=== PATIENT | female | born 1940 | race Hispanic/Latino ===

== ENCOUNTER 2018-10-15 18:24 | Emergency (ER) | payer MEDICARE ==
[~2018-10-15 18:24] MED LIST: ASPI-555 PO; LEVO50TA11 PO; METO-391 PO; SERT100T12 PO
== END 2018-10-15 20:04 | disposition home or self-care (01) ==
LOC: EDH 18:24
DX: N76.6 Ulceration of vulva (principal); I10 Essential (primary) hypertension; F41.9 Anxiety disorder, unspecified; Z90.710 Acquired absence of both cervix and uterus; Z98.890 Other specified postprocedural states
CPT/HCPCS: 99282

== ENCOUNTER 2021-05-20 02:28 | Emergency (ER) | payer OTHER, MEDICARE ==
[~2021-05-20] VITALS: Ht 152.4 cm; Wt 73.9 kg
[~2021-05-20 02:28] MED LIST changes: -ASPI-555 PO; +ASPI-556 PO; +SERT-440 PO; -SERT100T12 PO
[2021-05-20] MEDS ORDERED: MORPHINE 4 MG SYG ONE (02:54)
[2021-05-20] MEDS ORDERED: ONDANSETRON 4MG INJ ONE (02:54)
[2021-05-20] MEDS ORDERED: ONDANSETRON 4MG INJ IVP ONE (03:00)
[2021-05-20] MEDS ORDERED: MORPHINE 4 MG SYG IV ONE (03:00)
[2021-05-20 03:28] LABS: BASOPHILS % (AUTO) 0.5 % (0.0-5.0); EOSINOPHILS % (AUTO) 2.5 % (0.0-8.0); HEMATOCRIT 38.5 % (36-48); LYMPHOCYTES % (AUTO) 34.1 % (21.0-51.0); MEAN CORPUSCULAR HGB CONC 33.2 g/dL (32.0-36.0); MEAN CORPUSCULAR VOLUME 84.2 fL (79-99); MONOCYTES % (AUTO) 8.3 % (3.0-13.0); NEUTROPHILS % (AUTO) 54.4 % (40.0-77.0); PLATELET COUNT (AUTO) 217 K/uL (130-400); RED BLOOD CELL COUNT(AUTO) 4.57 MIL/uL (4.00-5.50); RED CELL DISTRIBUTION WIDTH 12.7 % (11.0-15.5); WHITE BLOOD COUNT (AUTO) 5.5 K/uL (4.8-10.8)
[2021-05-20 03:50] LABS: ALBUMIN 3.9 g/dL (3.5-5.0); BILIRUBIN,TOTAL 0.7 mg/dL (0.2-1.0); POTASSIUM 3.4 mmol/L (3.5-5.1); TOTAL PROTEIN, SERUM 7.9 g/dL (6.0-8.3)
[2021-05-20] MEDS ORDERED: LIDOCAINE HCL 2% JELLY 5 ML ONE (03:52)
[2021-05-20] MEDS ORDERED: AMOX-426 PO (04:57)
[2021-05-20] MEDS ORDERED: CEFTRIAXONE 1G VIAL IVP ONE (05:00)
[2021-05-20] MEDS ORDERED: LIDO5JEL9 MM (05:01)
[2021-05-20 05:18] VITALS: BP 145/57
== END 2021-05-20 05:18 | disposition home or self-care (01) ==
LOC: EDH 02:28
DX: N76.6 Ulceration of vulva (principal); F41.9 Anxiety disorder, unspecified; E03.9 Hypothyroidism, unspecified; F32.A Depression, unspecified; I10 Essential (primary) hypertension; Z79.82 Long term (current) use of aspirin; Z79.899 Other long term (current) drug therapy
CPT/HCPCS: 36415; 80053; 85025; 96374; 96375 ×2; 99284; J0696; J2270; J2405

== ENCOUNTER 2023-03-03 07:30 | Emergency (ER) | payer OTHER, MEDICARE ==
[~2023-03-03] VITALS: Ht 152.4 cm; Wt 72.1 kg
[2023-03-03 08:21] LABS: HEMATOCRIT 36.2 % (36-48); MEAN CORPUSCULAR HEMOGLOBIN 27.4 pg (27.0-33.0); MEAN CORPUSCULAR HGB CONC 32.6 g/dL (32.0-36.0); MEAN CORPUSCULAR VOLUME 84.2 fL (79-99); RED BLOOD CELL COUNT(AUTO) 4.3 MIL/uL (4.00-5.50); RED CELL DISTRIBUTION WIDTH 13.4 % (11.0-15.5)
[2023-03-03 08:27] LABS: CREATININE 0.8 mg/dL (0.5-1.5); POTASSIUM 3.4 mmol/L (3.5-5.1)
[2023-03-03 08:30] LABS: BILIRUBIN,URINE NEGATIVE (NEGATIVE); COLOR,URINE YELLOW (YELLOW); GLUCOSE, URINE (UA) NEGATIVE (NEGATIVE); KETONES,URINE NEGATIVE (NEGATIVE); LEUKOCYTE ESTERASE ,URINE 500 Leu/uL (NEGATIVE); NITRATE,URINE NEGATIVE (NEGATIVE); OCCULT BLOOD,URINE NEGATIVE (NEGATIVE); PROTEIN,URINE 20 mg/dL (NEGATIVE); UROBILINOGEN,URINE 0.2 mg/dL (0.2-1.0)
[2023-03-03 08:32] LABS: ALBUMIN 3.6 g/dL (3.5-5.0); BILIRUBIN,TOTAL 0.6 mg/dL (0.2-1.0); TOTAL PROTEIN, SERUM 7.2 g/dL (6.0-8.3)
[2023-03-03 08:34] LABS: ADD UA MICROSCOPIC YES; APPEARANCE,URINE HAZY (CLEAR)
[2023-03-03 08:38] LABS: BACTERIA,URINE RARE /HPF (None Seen); MUCUS,URINE FEW LPF (None Seen); RBC,URINE 0-1 /HPF (0-1); SQUAMOUS EPITHELIAL CELL,UR FEW /HPF (0-2); WBC,URINE TNTC /HPF (0-1)
[2023-03-03] MEDS ORDERED: ONDANSETRON 4MG INJ IVP ONE (09:00)
[2023-03-03] MEDS ORDERED: LACTATED RINGERS 1000ML 1,000 ML IV ONE (09:00)
[2023-03-03] MEDS ORDERED: FAMOTIDINE 20MG VIAL IV ONE (09:00)
[2023-03-03] MEDS ORDERED: CEPHALEXIN 500 MG CAPSULE PO ONE (10:30)
[2023-03-03 11:43] VITALS: BP 176/62; PULSE 55; RESP 20; O2SAT 99
[2023-03-03] MEDS ORDERED: ONDA4TAB10 PO (11:54)
[2023-03-03] MEDS ORDERED: CEPH500B PO (11:54)
== END 2023-03-03 12:15 | disposition home or self-care (01) ==
LOC: EDH 07:30
DX: N39.0 Urinary tract infection, site not specified (principal); A08.4 Viral intestinal infection, unspecified; I10 Essential (primary) hypertension; E87.6 Hypokalemia; Z90.49 Acquired absence of other specified parts of digestive tract; Z90.710 Acquired absence of both cervix and uterus; Z98.890 Other specified postprocedural states
CPT/HCPCS: 99284; 96374; 96361; 96375; 80053; 83690; 85027; 87088; 83605; 81001; 36415; J7120; J3490; J2405

== ENCOUNTER → 2025-02-04 | Emergency (ER) | payer OTHER, MEDICAID ==
[~2025-02-04] VITALS: Ht 152.4 cm; Wt 54.4 kg
[~2025-02-04] MED LIST changes: +AMOX-426 PO; -ASPI-556 PO; +DONE-53 PO; +FOLI0.8C PO; -LEVO50TA11 PO; +LISI20TA24 PO; -METO-391 PO; -SERT-440 PO; +SUCR1TAB2 PO
[2025-02-04 11:49] VITALS: TEMP 98.1
--- NOTE | 2025-02-04 12:04 | ERN ---
ED Note History of Present Illness Stated Complaint: FALL Chief Complaint: Mechanical Fall Time Seen by MD: 11:40 Time Seen by Midlevel: 11:41 Dictation: 84-year-old female presents to the emergency department accompanied by her daughter per EMS for evaluation due to reported having sustained a fall 2 days ago and complaining of chest pain day. The daughter states that she does have a history of dementia and because of that she has a very poor historian. As per the daughter, she has not know if the chest pain is associated to the fall although his chest pain that is heart related. The daughter states that she had 1 episode of vomiting yesterday but not today. Currently, the daughter states that she is trying acting her normal self. Allergies: Coded Allergies: No Known Drug Allergies (Unverified Allergy, Unknown, 12/04/22) Emergency Care RADIO DISC JOCKEY: None Home Meds Active Scripts Sucralfate (Sucralfate) 1 Gram Tablet, 1 TAB PO TID for 30 Days, #90 TAB 0 Refills Prov:GWEN MORENO MD 12/11/24 Amoxicillin/Potassium Clav (Augmentin 500-125 Tablet) 500 Mg-125 Mg Tablet, 1 TAB PO BID for 7 Days, #14 TAB 0 Refills Prov:GWEN MORENO MD 12/11/24 Reported Medications Folic Acid (Folic Acid) 0.8 Mg Capsule, 1 CAP PO DAILY for 30 Days, #30 CAP 0 Refills 12/09/24 Donepezil HCl (Donepezil HCl) 10 Mg Tab.rapdis, 10 MG PO AM, TAB 12/09/24 Lisinopril (Lisinopril) 20 Mg Tablet, 1 TAB PO DAILY 03/15/24 Past Medical History Past Medical History: Dementia, Hypertension Surgical History: Unknown Surgical History Other: RT KNEE, UMBILIAL HERNIA Family History: HTN Social History: Negative, Lives with family History: Not Applicable RN Note Reviewed/Agreed w/PFSH: Yes Review of System Dictation Review of systems unable to be obtained due to patient history of dementia. Initial Vital Sign VS Vital Signs Date Time Temp Pulse Resp B/P (MAP) Pulse Ox O2 Delivery O2 Flow Rate FiO2 02/04/25 11:39 98.1 58 20 136/72 99 0 02/04/25 11:49 Room Air* 21 Physical Exam Dictation General: awake, alert, NAD Head/Face: Normocephalic, atraumatic Eyes: PERRL, EOMI ENT: Oral mucosa moist Neck: Trachea midline, supple Cardiovascular: RRR, no edema Respiratory: Symmetrical, non-labored Abdomen: Soft, non-tender, non-distended, no guarding. Skin: Warm, dry, good turgor, no rash MS/Extremity: Pulses equal, no cyanosis, neurovascular intact, FROM Neuro: Awake, alert, oriented to person Results (Laboratory/Radiology) Laboratory/Radiology Laboratory Tests Test 02/04/25 12:11 02/04/25 13:59 White Blood Count 7.5 K/uL (4.8-10.8) Red Blood Count 3.82 MIL/uL (4.00-5.50) L Hemoglobin 10.7 g/dL (12.0-16.0) L Hematocrit 32.4 % (36-48) L Mean Corpuscular Volume 84.8 fL (79-99) Mean Corpuscular Hemoglobin 28.0 pg (27.0-33.0) Mean Corpuscular Hemoglobin Concent 33.0 g/dL (32.0-36.0) Red Cell Distribution Width 13.1 % (11.0-15.5) Platelet Count 235 K/uL (130-400) Mean Platelet Volume 11.3 fL (7.5-10.5) H Immature Granulocyte % (Auto) 0.4 % (0-1) Neutrophils (%) (Auto) 76.0 % (40.0-77.0) Lymphocytes (%) (Auto) 16.0 % (21.0-51.0) L Monocytes (%) (Auto) 7.2 % (3.0-13.0) Eosinophils (%) (Auto) 0.1 % (0.0-8.0) Basophils (%) (Auto) 0.3 % (0.0-5.0) Neutrophils # (Auto) 5.7 K/uL (1.8-7.7) Lymphocytes # (Auto) 1.2 K/uL (1.0-4.8) Monocytes # (Auto) 0.5 K/uL (0.1-1.0) Eosinophils # (Auto) 0.01 K/uL (0.00-0.70) Basophils # (Auto) 0.02 K/uL (0.00-0.20) Absolute Immature Granulocyte (auto 0.03 K/uL (0-1) Nucleated Red Blood Cells 0.0 % (0.0-0.19) Sodium Level 139 mmol/L (136-145) Potassium Level 3.0 mmol/L (3.5-5.1) *L Chloride Level 100 mmol/L (101-111) L Carbon Dioxide Level 28 mmol/L (21-32) Blood Urea Nitrogen 21 mg/dL (7-18) H Creatinine 0.7 mg/dL (0.5-1.0) Glomerular Filtration Rate Calc 86 mL/min (>90) Random Glucose 85 mg/dL (70-105) Total Calcium 9.1 mg/dL (8.5-10.1) Total Bilirubin 0.9 mg/dL (0.2-1.0) Aspartate Amino Transf (AST/SGOT) 13 U/L (10-37) Alanine Aminotransferase (ALT/SGPT) 13 U/L (12-78) Alkaline Phosphatase 114 U/L (50-136) Total Creatine Kinase 20 U/L (21-232) #L Troponin I High Sensitivity 13 ng/L (4-50) Total Protein 6.6 g/dL (6.0-8.3) Albumin 2.8 g/dL (3.5-5.0) L Urine Color YELLOW (YELLOW) Urine Appearance HAZY (CLEAR) Urine pH 6.0 (5.0-8.0) Urine Specific [place] 1.022 (1.001-1.031) Urine Protein 30 mg/dL (NEGATIVE) H Urine Glucose (UA) 30 mg/dL (NEGATIVE) H Urine Ketones 20 mg/dL (NEGATIVE) H Urine Occult Blood NEGATIVE (NEGATIVE) Urine Nitrate NEGATIVE (NEGATIVE) Urine Bilirubin NEGATIVE mg/dL (NEGATIVE) Urine Urobilinogen 2.0 mg/dL (0.2-1.0) H Urine Leukocyte Esterase NEGATIVE Jonathan/uL Urine RBC 0-1 /HPF (0-1) Urine WBC 2-5 /HPF (0-1) H Urine Squamous Epithelial Cells MOD /HPF (0-2) Urine Bacteria FEW /HPF (None Seen) Labs Reviewed?: Yes EKG Comment: EKG done 01/25/2025 at 12:02 p.m. Ventricular rate of 56 beats per minute WV 134 MS QRS 76 MS QT [address] Scan Comment: CT of the chest without contrast with no pertinent findings as per radiologist's read. ED Course ED Course Orders Procedure Category Date Status Time Troponin I High LAB 02/04/25 Complete Sensitivity 11:55 Cbc With Differential LAB 02/04/25 Complete 11:55 Comprehensive LAB 02/04/25 Complete Metabolic Panel 11:55 Creatine Kinase, Total LAB 02/04/25 Complete 11:55 12 Lead Ekg Tracing- EKG 02/04/25 Complete Technical 11:55 Ct Chest W/O Contrast CT 02/04/25 Resulted 11:55 Acetaminophen 325 Tab PHA 02/04/25 Complete (Tylenol 325mg Tab 13:00 Potassium Bicarb/Cit PHA 02/04/25 Complete Ac 25meq (K-Lyte Ta 13:00 Urinalysis Profile LAB 02/04/25 Complete 14:01 Current Medications Medications (Trade) Dose Ordered Sig/Sharona Route PRN Reason Start Time Stop Time Status Last Admin Dose Admin Acetaminophen (TYLenol 325MG TAB) 650 mg ONCE ONCE PO 02/04/25 13:00 02/04/25 13:01 DC 02/04/25 12:55 Potassium Bicarbonate (K-Lyte Tablet Eff 25 Meq Tablet.eff) 25 meq ONCE ONCE PO 02/04/25 13:00 02/04/25 13:01 DC 02/04/25 12:55 Vital Signs Date Time Temp Pulse Resp B/P (MAP) Pulse Ox O2 Delivery O2 Flow Rate FiO2 02/04/25 14:21 78 20 133/50 99 Room Air* 0 02/04/25 13:01 53 18 143/59 97 Room Air* 0 02/04/25 11:49 98.1 57 18 144/75 98 Room Air* 0 02/04/25 11:39 98.1 58 20 136/72 99 0 Medical Decision Making MDM MDM: Differential diagnosis: Chest wall strain, rib fracture, pneumothorax. Rationale: Tests considered and ordered secondary to shared decision making include: Previous outside records reviewed: Old ER visits. Risk of complication and/or morbidity or mortality of patient management: None Medications-Per medication reconciliation Need for hospitalization: Patient does not meet criteria for hospitalization. Need for emergency major/minor surgery: No There are no social concerns with this patient. Prescription drug management Prescriptions will include symptomatic care Patient's prior external medical records from other ER visits were reviewed by me as indicated. Prior testing and results from previous visits were reviewed. Prior tests were taken into account with medical decision making and resource utilization, independent historian/historians were used to obtain complete medical history. I independently interpreted the test that were performed, results were reviewed by me and considered findings on radiology if ordered. Medical management and examination interpretation discussions were had by me with other qualified healthcare professionals as indicated for the patient's care. DX & DISP Disposition: Discharge Departure Impression: Primary Impression: Strain of chest wall Additional Impression: Acute hypokalemia Condition: Stable Referrals: IRA PERDUE (PCP) Time of Disposition: 14:32 SINDY LINDA Feb 04, 2025 12:04
[2025-02-04 12:17] LABS: IMMATURE GRANULOCYTE ABSOLUTE 0.03 K/uL (0-1); NUCLEATED RED BLOOD CELLS 0.0 % (0.0-0.19); PLATELET COUNT (AUTO) 235 K/uL (130-400); RED BLOOD CELL COUNT(AUTO) 3.82 MIL/uL (4.00-5.50); RED CELL DISTRIBUTION WIDTH 13.1 % (11.0-15.5); WHITE BLOOD COUNT (AUTO) 7.5 K/uL (4.8-10.8)
[2025-02-04 12:35] LABS: ASPARTATE AMINOTRANSFERASE 13.0 U/L (10-37); CREATINE KINASE, TOTAL 20.0 U/L (21-232); CREATININE 0.7 mg/dL (0.5-1.0); GLOMERULAR FILTR. RATE CALC 86.0 mL/min (>90); GLUCOSE,RANDOM 85.0 mg/dL (70-105); SODIUM SERUM 139.0 mmol/L (136-145); TOTAL PROTEIN, SERUM 6.6 g/dL (6.0-8.3); UREA NITROGEN, BLOOD 21.0 mg/dL (7-18)
--- NOTE | 2025-02-04 13:59 | HMCIMG ---
EXAM: CT Chest Without IV Contrast. CLINICAL HISTORY: Fall, pain. TECHNIQUE: Axial computed tomography images of the chest were obtained without intravenous contrast. COMPARISON: None provided. FINDINGS: LUNGS: Focal subsegmental atelectasis is seen in the lateral basal segment of the right lung's lower lobe and middle lobe. The rest of the lungs appear essentially clear. PLEURAL SPACES: No evidence of pneumothorax. No pleural effusion. HEART: No cardiomegaly. No significant pericardial effusion. Atherocalcific changes are noted in the aorta. Severe coronary artery calcifications are seen. LYMPH NODES: No lymphadenopathy is evident. UPPER ABDOMEN: The upper abdominal solid organs are unremarkable. BONES: No acute osseous abnormality. Degenerative changes in the spine. IMPRESSION: 1. No acute intrathoracic findings. /[place]
[2025-02-04 14:08] LABS: GLUCOSE, URINE (UA) 30 mg/dL (NEGATIVE); LEUKOCYTE ESTERASE ,URINE NEGATIVE Leu/uL (NEGATIVE); NITRATE,URINE NEGATIVE (NEGATIVE); OCCULT BLOOD,URINE NEGATIVE (NEGATIVE)
[2025-02-04 14:09] LABS: ADD UA MICROSCOPIC YES; APPEARANCE,URINE HAZY (CLEAR)
[2025-02-04 14:13] LABS: SQUAMOUS EPITHELIAL CELL,UR MOD /HPF (0-2)
--- NOTE | 2025-02-04 14:18 | EKG ---
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
[2025-02-04 14:21] VITALS: BP 133/50; PULSE 78; RESP 20; O2SAT 99
== END ==
LOC: EDH 11:39
DX: S29.011A Strain of muscle and tendon of front wall of thorax, initial encounter (principal); E87.6 Hypokalemia; F03.90 Unspecified dementia, unspecified severity, without behavioral disturbance, psychotic disturbance, mood disturbance, and anxiety; I10 Essential (primary) hypertension; Z79.899 Other long term (current) drug therapy; W18.39XA Other fall on same level, initial encounter; Y93.89 Activity, other specified; Y92.89 Other specified places as the place of occurrence of the external cause; Y99.8 Other external cause status
CPT/HCPCS: 36415; 71250; 80053; 81001; 82550; 84484; 85025; 93005; 99284

== ENCOUNTER 2025-04-04 16:43 | Inpatient (IN) | payer OTHER, MEDICAID ==
[~2025-04-04] VITALS: Ht 165.1 cm; Wt 49.0 kg
[~2025-04-04 16:43] MED LIST changes: -AMOX-426 PO; +MEMA10TA21 PO; +OMEP40CA21 PO
[2025-04-04] MEDS ORDERED: PANT40TA54 PO (17:15)
[2025-04-04] MEDS ORDERED: CLON0.5T23 PO (17:15)
[2025-04-04] MEDS ORDERED: DOXE50CA4 PO (17:15)
[2025-04-04] MEDS ORDERED: ONDA22I PEG (17:15)
[2025-04-04] MEDS ORDERED: ACET-2123 PO (17:15)
[2025-04-04] MEDS ORDERED: MEMA10TA21 PO (17:15)
[2025-04-04] MEDS ORDERED: FERS325 PO (17:15)
[2025-04-04] MEDS ORDERED: LISI20TA24 PO (17:15)
--- NOTE | 2025-04-04 17:31 | ERN ---
General Chief Complaint: Head, Face, Neck Trauma Stated Complaint: HEAD INJURY Time Seen by MD: 16:47 Time Seen by Midlevel: 16:47 Source: patient History of Present Illness Initial Comments 85 y/o male presents to the ED by EMS from nursing facility due to a head injury and requiring a PEG tube replacement. Daughter reports patient has been a little more confused from usual dementia baseline, and has also been complaining of lower abdominal pain. Daughter denies any vomiting, fevers, states patient has chronic diarrhea. Denies further associated symptoms. PMHx dementia, HTN Allergies: Coded Allergies: No Known Drug Allergies (Unverified Allergy, Unknown, 12/04/22) Home Meds Active Scripts Sucralfate (Sucralfate) 1 Gram Tablet, 1 TAB PO TID for 30 Days, #90 TAB 0 Refills Prov:GWEN MORENO MD 12/11/24 Reported Medications Ondansetron HCl (Zofran) 4 Mg/2 Ml Inj, 4 MG PEG QIDP PRN for NAUSEA, ML 04/04/25 Acetaminophen (Acetaminophen Extra Strength) 500 Mg Tablet, 1000 MG PO HSPRN PRN for PAIN, TAB 04/04/25 Doxepin HCl (Doxepin HCl) 50 Mg Capsule, 1 CAP PO HS for 30 Days, #30 CAP 0 Refills 04/04/25 Pantoprazole Sodium (Pantoprazole Sodium) 40 Mg Tablet.dr, 1 TAB PO DAILY for 30 Days, #30 TAB 0 Refills 04/04/25 Clonazepam (Clonazepam) 0.5 Mg Tab.rapdis, 1 TAB PO BID for 30 Days, #60 TAB 0 Refills 04/04/25 Ferrous Sulfate (Ferrous Sulfate) 325 Mg (65 Mg Iron) Ectab, 1 TAB PO BID for 30 Days, #60 TAB 0 Refills 04/04/25 Lisinopril (Lisinopril) 20 Mg Tablet, 1 TAB PO DAILY for 30 Days, #30 TAB 0 Refills 04/04/25 Memantine HCl (Memantine HCl) 10 Mg Tablet, 1 TAB PO DAILY for 30 Days, #30 TAB 0 Refills 04/04/25 Omeprazole (Omeprazole) 40 Mg Capsule.dr, 1 CAP PO DAILY 03/03/25 Memantine HCl (Memantine HCl) 10 Mg Tablet, 1 TAB PO DAILY 03/03/25 Folic Acid (Folic Acid) 0.8 Mg Capsule, 1 CAP PO DAILY for 30 Days, #30 CAP 0 Refills 12/09/24 Donepezil HCl (Donepezil HCl) 10 Mg Tab.rapdis, 10 MG PO AM, TAB 12/09/24 Lisinopril (Lisinopril) 20 Mg Tablet, 1 TAB PO DAILY 03/15/24 Past Medical History Past Medical History: Anxiety, Constipation, Dementia, Hypertension, Other Medical History Other: GASTRITIS, UNSTEADY, HYPOKALEMIA, PNEUMONIA Past Surgical History: Unknown Surgical History Other: RT KNEE, UMBILIAL HERNIA Family History Family History: HTN Social History Social History: Negative, Lives with family Female( History) History: Not Applicable ROS Dictation Constitutional: Negative for fever,chills, and weight loss Eyes: Negative for injury, pain,redness, and discharge ENT: Negative for injury,pain or swelling Cardiovascular: Negative for chest pain, palpitations, and edema Respiratory: Negative for shortness of breath, cough, and wheezing, Abdomen/GI: Positive abdominal pain Negative for nausea, vomiting, diarrhea, and constipation Back: Negative for injury and pain : Negative for painful urination, bleeding or discharge MS/Extremity: Negative for injury and deformity Skin: Negative for rash, and discoloration Neuro: Positive headache Negative for weakness, numbness, tingling, and seizure Psych: Negative for suicide ideation, homicidal ideation, and hallucinations Physical Exam Physical Exam Dictation General: awake, alert, no acute distress Head/Face: Normocephalic, atraumatic Eyes: PERRL, EOMI, normal conjunctiva ENT: oral cavity clear, oral mucosa moist Neck: Supple, normal range of motion Cardiovascular: RRR, normal S1/S2 Respiratory: CTAB, no respiratory distress Abdomen: Soft, discomfort on palpation of the lower abdomen, non-distended, no guarding or rebound. Peg tube incision epigastric area Skin: Warm, dry, normal turgor, no rash. MS/Extremity: Pulses equal, no cyanosis, neurovascular intact, FROM Neuro: COAx4, GCS 15, confused consistent with a dementia Psych: Normal behavior, mood, and affect normal Results Laboratory and Microbiology Lab and Micro Result Laboratory Tests Test 04/04/25 17:35 04/04/25 20:05 White Blood Count 10.1 K/uL (4.8-10.8) Red Blood Count 3.18 MIL/uL (4.00-5.50) L Hemoglobin 8.7 g/dL (12.0-16.0) L Hematocrit 28.3 % (36-48) L Mean Corpuscular Volume 89.0 fL (79-99) Mean Corpuscular Hemoglobin 27.4 pg (27.0-33.0) Mean Corpuscular Hemoglobin Concent 30.7 g/dL (32.0-36.0) L Red Cell Distribution Width 14.6 % (11.0-15.5) Platelet Count 499 K/uL (130-400) H Mean Platelet Volume 10.3 fL (7.5-10.5) Immature Granulocyte % (Auto) 1.6 % (0-1) H Neutrophils (%) (Auto) 71.4 % (40.0-77.0) Lymphocytes (%) (Auto) 15.3 % (21.0-51.0) L Monocytes (%) (Auto) 9.9 % (3.0-13.0) Eosinophils (%) (Auto) 1.3 % (0.0-8.0) Basophils (%) (Auto) 0.5 % (0.0-5.0) Neutrophils # (Auto) 7.2 K/uL (1.8-7.7) Lymphocytes # (Auto) 1.6 K/uL (1.0-4.8) Monocytes # (Auto) 1.0 K/uL (0.1-1.0) Eosinophils # (Auto) 0.13 K/uL (0.00-0.70) Basophils # (Auto) 0.05 K/uL (0.00-0.20) Absolute Immature Granulocyte (auto 0.16 K/uL (0-1) Nucleated Red Blood Cells 0.0 % (0.0-0.19) Red Blood Cell Morphology See comments Sodium Level 138 mmol/L (136-145) Potassium Level 4.4 mmol/L (3.5-5.1) Chloride Level 99 mmol/L (101-111) L Carbon Dioxide Level 32 mmol/L (21-32) Blood Urea Nitrogen 25 mg/dL (7-18) H Creatinine 0.6 mg/dL (0.5-1.0) Glomerular Filtration Rate Calc 89 mL/min (>90) Random Glucose 103 mg/dL (70-105) Total Calcium 9.2 mg/dL (8.5-10.1) Urine Color LIGHT-YELLOW (YELLOW) Urine Appearance CLEAR (CLEAR) Urine pH 8.0 (5.0-8.0) Urine Specific [place] 1.010 (1.001-1.031) Urine Protein NEGATIVE mg/dL (NEGATIVE) Urine Glucose (UA) NEGATIVE mg/dL (NEGATIVE) Urine Ketones NEGATIVE mg/dL (NEGATIVE) Urine Occult Blood NEGATIVE (NEGATIVE) Urine Nitrate NEGATIVE (NEGATIVE) Urine Bilirubin NEGATIVE mg/dL (NEGATIVE) Urine Urobilinogen 0.2 mg/dL (0.2-1.0) Urine Leukocyte Esterase NEGATIVE Jonathan/uL Urine RBC 0-1 /HPF (0-1) Urine WBC 2-5 /HPF (0-1) H Urine Squamous Epithelial Cells RARE /HPF (0-2) Urine Bacteria None /HPF (None Seen) Labs Reviewed?: Yes EKG/XRAY/US/CT/MRI CT Scan Comment REASON: ABdominal discomfort, R/O fistula ORDERING PHYSICIAN: HERMINIO DASILVA PAC PROCEDURE: ABD PEL WO - CT ABDOMEN/PELVIS W/O CONTRAST EXAM: CT Abdomen and Pelvis Without IV contrast CLINICAL HISTORY: Abdominal discomfort, to rule out a fistula. TECHNIQUE: Axial computed tomography images of the abdomen and pelvis without intravenous contrast. CONTRAST: No IV contrast. COMPARISON: CT dated March 03, 2025. FINDINGS: LUNG BASES: Bibasilar atelectasis with parenchymal scarring. Coronary artery calcifications. Aortic valve calcifications. Otherwise, the lung bases appear clear. No pleural effusions are seen. LIVER: Unremarkable. GALLBLADDER AND BILE DUCTS: The gallbladder is surgically removed. PANCREAS: Unremarkable. SPLEEN: Unremarkable. ADRENAL GLANDS: Unremarkable. KIDNEYS, URETERS, AND BLADDER: Tiny concretion in the mid calyx of the right kidney and in the mid and lower calyx of the left kidney. A few cysts in the left kidney, the largest measuring approximately 12 x 10 mm in the upper pole of the left kidney. There is no hydronephrosis or hydroureter. STOMACH AND BOWEL: There is a gastrostomy tube in place. The stomach is distended. No wall thickening. Colonic diverticulosis. The cecum is medially placed. There is an asymmetric circumferential wall thickening of the sigmoid colon with mild pericolonic fat stranding. 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 The terminal ileum is adherent to the sigmoid colon. PERITONEUM: Approximately 5.7 x 4.6 cm defect in the anterior abdominal wall involving the supra and infraumbilical region, with herniation of the omental fat, suggestive of incisional hernia is likely. No free fluid. No free air. LYMPH NODES: A few enlarged, rounded lymph nodes in the periumbilical region and in the soft tissue plane of the anterior abdominal wall adjacent to the incisional hernia, the largest measuring approximately 1.1 x 1 cm. REPRODUCTIVE: Unremarkable as visualized. VASCULATURE: Atherosclerotic changes in the visualized arterial vasculature in the form of fibrocalcified plaque. No evidence of abdominal aortic aneurysm. BONES: Spinal degenerative changes. Anterior offset of L4 vertebra over L5, due to facet joint arthropathy. No aggressive appearing osseous lesion. No acute osseous pathology is evident. IMPRESSION: 1. Colonic diverticulosis. Asymmetric circumferential wall thickening of the sigmoid colon with mild pericolonic fat stranding, likely diverticulitis. There is a communication between the sigmoid colon and the medially placed cecum with loss of fat plane, suggestive of colocolic fistula. No interval changes. 2. Incisional hernia in the anterior abdominal wall with omental fat herniation, no interval changes. 3. A few enlarged periumbilical and anterior abdominal wall lymph nodes, no interval changes. /[place] DICTATED BY: LISA BECKHAM Jr., MD DATE: 04/04/252127 [facility] MDM: Differential diagnosis: Closed head injury, dehydration, UTI, peg tube replacement Rationale: 85 y/o male presents to the ED by EMS from nursing facility due to a head injury and requiring a PEG tube replacement. Daughter reports patient has been a little more confused from usual dementia baseline, and has also been complaining of lower abdominal pain. Daughter denies any vomiting, fevers, states patient has chronic diarrhea. Denies further associated symptoms. PMHx dementia, HTN Per physical examination the patient is confused, lower abdominal discomfort on palpation. PEG tube replacement was performed in the ED and confirmed with the abdominal x-ray to be in placed. Head CT for closed head injury shows no intracranial abnormalities. Due to patient's abdominal pain labs and UA obt ained. When nurses were attempting to obtain urine with a in and out cath, they mentioned fecal material was obtained on [address] abdomen and pelvis was then obtained indicating a communication between the sigmoid colon in the cecum likely colocolic fistula, terminal ileum is educated into the sigmoid colon. Anterior abdominal wall infraumbilical region hernia. Enlarged periumbilical and anterior abdominal wall lymph nodes noted. Labs indicate anemia with hemoglobin of 8.7 otherwise nonspecific and UA negative for urinary tract infection. Case was discussed with general surgeon Dr. Rosario who recommended initiating the patient on broad-spectrum antibiotics Zosyn, IV fluids at 100 cc/hour of NS, and maintaining her NPO. Case discussed with hospitalist who accepted admission. Previous outside records reviewed: Old ER visits. Risk of complication and/or morbidity or mortality of patient management: None Medications-Per medication reconciliation Need for hospitalization: Patient does meet criteria for hospitalization. Need for emergency major/minor surgery: No There are no social concerns with this patient. Prescription drug management Prescriptions will include symptomatic care Patient's prior external medical records from other ER visits were reviewed by me as indicated. Prior testing and results from previous visits were reviewed. Prior tests were taken into account with medical decision making and resource utilization, independent historian/historians were used to obtain complete medical history. I independently interpreted the test that were performed, results were reviewed by me and considered findings on radiology if ordered. Medical management and examination interpretation discussions were had by me with other qualified healthcare professionals as indicated for the patient's care. ED Course Orders Procedure Category Date Status Time Ct Head/Brain W/O CT 04/04/25 Resulted Contrast 16:52 Cbc With Differential LAB 04/04/25 Complete 17:15 Basic Metabolic Panel LAB 04/04/25 Complete 17:15 Urinalysis LAB 04/04/25 Complete W/Microscopic 17:15 Peg Replacement Set CPOE 04/04/25 Transmitted Up (Er) 17:25 Abd 1vw RAD 04/04/25 Resulted 17:25 Straight Cath If No CPOE 04/04/25 Transmitted Void X6hrs 18:13 Diatr PHA 04/04/25 Complete Meglu/Diatrizoate 18:19 Ct Abdomen/Pelvis W/O CT 04/04/25 Resulted Contrast 18:26 Zosyn 3.375gm+Ns 50ml PHA 04/04/25 Complete (Zosyn 3.375gm+Ns 21:00 0.9%Nacl 1000ml (Ns PHA 04/04/25 In Process 1000ml) 21:00 Current Medications Medications (Trade) Dose Ordered Sig/Sharona Route PRN Reason Start Time Stop Time Status Last Admin Dose Admin Diatrizoate Meglum/ Diatrizoate Sod (Gastrografin 66-10 Solution) 30 ml STK-MED ONCE .ROUTE 04/04/25 18:19 04/04/25 18:19 DC Piperacillin Sod/ Tazobactam Sod (Zosyn 3.375gm+NS 50ml) 3.375 gm ONCE ONCE IV 04/04/25 21:00 04/04/25 21:01 DC Sodium Chloride 1,428 ml @ 100 mls/hr ONCE ONCE IV 04/04/25 21:00 04/05/25 11:16 Vital Signs Date Time Temp Pulse Resp B/P (MAP) Pulse Ox O2 Delivery O2 Flow Rate FiO2 04/04/25 19:48 98.4 85 20 122/60 96 Room Air* 0 04/04/25 17:32 98.4 86 18 113/63 100 Room Air* 0 21 04/04/25 17:01 96.3 92 16 106/69 96 Room Air 0 DX & DISP Disposition: Inpatient Decision to Admit Date: Apr 04, 2025 Departure Impression: Primary Impression: Colocolic fistula Additional Impressions: Closed head injury, PEG (percutaneous endoscopic gastrostomy) adjustment/replacement/removal, Anemia Condition: Stable Referrals: DEISY CALDERON M.D. (PCP) I performed the substantive portion of the visit. I have reviewed and personally made and approve the management plan that is documented in the notes by myself or the ANA MARIA. I acknowledge full responsibility for the patient's management plan. HERMINIO DASILVA PAC Apr 04, 2025 17:31
[2025-04-04 17:43] LABS: IMMATURE GRANULOCYTE ABSOLUTE 0.16 K/uL (0-1); NUCLEATED RED BLOOD CELLS 0.0 % (0.0-0.19); PLATELET COUNT (AUTO) 499 K/uL (130-400); RED BLOOD CELL COUNT(AUTO) 3.18 MIL/uL (4.00-5.50); RED CELL DISTRIBUTION WIDTH 14.6 % (11.0-15.5); WHITE BLOOD COUNT (AUTO) 10.1 K/uL (4.8-10.8)
--- NOTE | 2025-04-04 17:52 | HMCIMG ---
EXAM: CT Head Without IV contrast. CLINICAL HISTORY: head injury TECHNIQUE: Axial computed tomography images of the head/brain without intravenous contrast. COMPARISON: None provided. FINDINGS: BRAIN: Age-appropriate atrophy. 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 No evidence of acute hemorrhage. No mass lesion. No CT evidence for acute territorial infarct. No midline shift or extra-axial collections. VENTRICLES: No hydrocephalus. ORBITS: The orbits are unremarkable. SINUSES AND MASTOIDS: The paranasal sinuses and mastoid air cells are clear. BONES: No fracture. SOFT TISSUES: Unremarkable. IMPRESSION: No acute intracranial abnormality. /[place]
[2025-04-04 17:53] LABS: CREATININE 0.6 mg/dL (0.5-1.0); GLOMERULAR FILTR. RATE CALC 89.0 mL/min (>90); GLUCOSE,RANDOM 103.0 mg/dL (70-105); SODIUM SERUM 138.0 mmol/L (136-145); UREA NITROGEN, BLOOD 25.0 mg/dL (7-18)
--- NOTE | 2025-04-04 18:11 | NUR ---
ATTEMPTED TWICE TO OBTAIN URINE VIA STRAIGHT CATH PER HERMINIO PEREZ, BOTH TIMES UNABLE TO GET URINE AND TUBES CAME OUT SMEEATHERED WITH WHAT APPEARS TO LOOK LIKE FECES, NOTIFIED HERMINIO PEREZ. Addendum: 04/04/25 at 1816 by SUSANA FIRST ATTEMPT BY JOHN LYONS, SECOND ATTEMPT BY BREANNE LYONS PRIMARY NURSE, SECOND ATTEMPT WITNESSED BY JOHN LYONS
[2025-04-04] MEDS ORDERED: DIATR MEGLU/DIATRIZOATE SODIUM 30 ML BOTTLE ONE (18:19)
--- NOTE | 2025-04-04 19:02 | HMCIMG ---
EXAM: CR Abdomen, 1 View. CLINICAL HISTORY: PEG tube placement confirmation COMPARISON: Radiograph dated March 16, 2025 Findings: AP view of the abdomen is submitted. Percutaneous gastrostomy tube terminates within the gastric body. Enteric contrast opacifies the gastric fundus. No extravasation noted to suggest a leak. There is abundant colonic fecal matter that may reflect constipation. There is a nonobstructive bowel gas pattern. Incidental atherosclerotic vascular calcifications are noted. IMPRESSION: 1. Percutaneous gastrostomy tube appropriately positioned within the gastric body without evidence of contrast extravasation. 2. Abundant colonic fecal matter, possibly reflecting constipation. /[place]
[2025-04-04 20:28] LABS: APPEARANCE,URINE CLEAR (CLEAR); GLUCOSE, URINE (UA) NEGATIVE (NEGATIVE); LEUKOCYTE ESTERASE ,URINE NEGATIVE Leu/uL (NEGATIVE); NITRATE,URINE NEGATIVE (NEGATIVE); OCCULT BLOOD,URINE NEGATIVE (NEGATIVE)
--- NOTE | 2025-04-04 20:28 | HMCIMG ---
EXAM: CT Abdomen and Pelvis Without IV contrast CLINICAL HISTORY: Abdominal discomfort, to rule out a fistula. TECHNIQUE: Axial computed tomography images of the abdomen and pelvis without intravenous contrast. CONTRAST: No IV contrast. COMPARISON: CT dated March 03, 2025. FINDINGS: LUNG BASES: Bibasilar atelectasis with parenchymal scarring. Coronary artery calcifications. Aortic valve calcifications. Otherwise, the lung bases appear clear. No pleural effusions are seen. LIVER: Unremarkable. GALLBLADDER AND BILE DUCTS: The gallbladder is surgically removed. PANCREAS: Unremarkable. SPLEEN: Unremarkable. ADRENAL GLANDS: Unremarkable. KIDNEYS, URETERS, AND BLADDER: Tiny concretion in the mid calyx of the right kidney and in the mid and lower calyx of the left kidney. A few cysts in the left kidney, the largest measuring approximately 12 x 10 mm in the upper pole of the left kidney. There is no hydronephrosis or hydroureter. STOMACH AND BOWEL: There is a gastrostomy tube in place. The stomach is distended. No wall thickening. Colonic diverticulosis. The cecum is medially placed. There is an asymmetric circumferential wall thickening of the sigmoid colon with mild pericolonic fat stranding. 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 The terminal ileum is adherent to the sigmoid colon. PERITONEUM: Approximately 5.7 x 4.6 cm defect in the anterior abdominal wall involving the supra and infraumbilical region, with herniation of the omental fat, suggestive of incisional hernia is likely. No free fluid. No free air. LYMPH NODES: A few enlarged, rounded lymph nodes in the periumbilical region and in the soft tissue plane of the anterior abdominal wall adjacent to the incisional hernia, the largest measuring approximately 1.1 x 1 cm. REPRODUCTIVE: Unremarkable as visualized. VASCULATURE: Atherosclerotic changes in the visualized arterial vasculature in the form of fibrocalcified plaque. No evidence of abdominal aortic aneurysm. BONES: Spinal degenerative changes. Anterior offset of L4 vertebra over L5, due to facet joint arthropathy. No aggressive appearing osseous lesion. No acute osseous pathology is evident. IMPRESSION: 1. Colonic diverticulosis. Asymmetric circumferential wall thickening of the sigmoid colon with mild pericolonic fat stranding, likely diverticulitis. There is a communication between the sigmoid colon and the medially placed cecum with loss of fat plane, suggestive of colocolic fistula. No interval changes. 2. Incisional hernia in the anterior abdominal wall with omental fat herniation, no interval changes. 3. A few enlarged periumbilical and anterior abdominal wall lymph nodes, no interval changes. /[place]
[2025-04-04 20:33] LABS: SQUAMOUS EPITHELIAL CELL,UR RARE /HPF (0-2)
--- NOTE | 2025-04-04 21:57 | HP ---
[facility] HISTORY AND PHYSICAL Date of Service: Apr 04, 2025 Time of Service: 21:57 PCP: Robyn Greene HISTORY OF PRESENT ILLNESS: This is an 85-year-old female, a resident of [facility] with past medical history of Dementia, Hypertension, constipation, anxiety, insomnia ,diverticulosis , anemia and PEG tube placement on 03/12/2025 who was brought to the ED via EMS coming from an [facility] nursing facility due to head injury and patient peg tube was also pulled out requiring peg replacement.Daughter was at [facility] during my evaluation and states that patient was admitted here last Mar 03 due to nausea,vomiting and diarrhea and patient was not eating anymore and that peg tube was decided to be placed she said and patient was transferred to [facility] for rehab she said.Patient also states that patient has dementia but becomes more confused today because patient got out of bed and walked and eventually fell on the floor hitting her left side of the head ,reason why she is brought here.Patient is also on continuous peg tube feeding at the residential she said.Daughter also reports patient has chronic diarrhea. Seen and examined patient in the ER awake,alert and following commands.Patient continue to complain of lower abdominal pain.Denies fever, chills, nausea,vom iting,chest pain,palpitation,cough and shortness of breath. Latest vital signs temperature 98.4, heart rate 85, blood pressure 122/60 saturation 96% on room air. Labs: Hemoglobin 8.7, hematocrit 28, platelet count 499 sodium 138, chloride 99, BUN 25, GFR 89 glucose 103 total calcium 9.2. Urinalysis is unremarkable. CT head without contrast result revealed no acute intracranial abnormality. X-ray of the abdomen result revealed percutaneous gastrostomy tube appropriately position with in the gastric body without evidence of contrast extravasation. Abundant colonic fecal matter possibly reflecting constipation. CT abdomen and pelvis without contrast result revealed colonic diverticulosis. A symmetric circumferential wall thickening of the sigmoid colon with mild pericolonic fat stranding likely diverticulitis. There is a communication between the sigmoid colon and the medially placed cecum with loss of fat plane, suggestive of colocolic fistula. No interval changes. Incisional hernia in the anterior abdominal wall with omental fat herniation no interval changes. A few enlarged periumbilical and anterior abdominal wall lymph nodes no interval changes. While in the ER patient received Zosyn IV. As per ER WASH WORKER ,peg tube was replaced in the ER and while ER staff was performing in and out cath fecal material was obtained on [address] abdomen and pelvis was obtained and revealed colocolic fistula and ER WASH WORKER consulted Gen surgeon magician/illusionist .Will admit patient for further medical management REVIEW OF SYSTEMS CONSTITUTIONAL: Denies fevers, chills, or night sweats. No unintentional weight loss reported. NEUROLOGICAL: Denies headache, amaurosis fugax, motor weakness, sensory deficit, vertigo/spinning sensation, gait abnormalities, or tremors. ENT: No hearing loss, otalgia, otorrhea, rhinitis, rhinorrhea, hoarseness, or sore throat. CARDIOVASCULAR: Denies any exertional angina, dyspnea on exertion, orthopnea, paroxysmal nocturnal dyspnea, palpitations, life-threatening arrhythmias, claudication. PULMONARY: Denies any shortness of breath, cough, phlegm/sputum, hemoptysis, pleuritic chest pain. SLEEP: Denies morning headaches, daytime somnolence or napping. Denies difficulty falling asleep, staying asleep, waking from sleep. Denies knowledge of snoring. GASTROINTESTINAL: Denies any type of dysphagia to either liquids or solids. Denies nausea, vomiting, pyrosis, early satiety, abdominal pain, diarrhea, constipation, or changes in stool consistency or caliber. Denies coffee-ground emesis, hematemesis, hematochezia, or melanotic stools. GENITOURINARY: Denies frequency, urgency, nocturia, hematuria or incontinence (Storage/Irritative symptoms.) Low urinary stream, straining to void, urinary intermittency or hesitancy, splitting of the voiding stream, terminal dribbling. ENDOCRINOLOGIC: Denies polyuria, polydipsia, polyphagia or heat/cold intolerances. HEMATOLOGIC: Denies thrombophilia/previous clots, or coagulopathy/bleeding disorders. ONCOLOGIC: Denies personal history of malignancy. DERMATOLOGIC: Denies rashes or pruritus. PSYCHIATRIC: Denies any suicidal or homicidal ideation. Denies hallucinations. PAST MEDICAL HISTORY: History was obtained from patient's daughter Luz Elena May [Dementia Hypertension, constipation, anxiety, insomnia and diverticulosis ] PAST SURGICAL HISTORY: [EGD with biopsy, peg tube placement, Cholecystectomy, appendectomy hysterectomy and left knee surgery ] PAST SOCIAL HISTORY: [ Patient lives IN [facility]. Patient cigarette, alcohol and recreational drug use ] FAMILY HISTORY: [Hypertension and cardiovascular disease ] Coded Allergies: No Known Drug Allergies (Unverified Allergy, Unknown, 12/04/22) PHYSICAL EXAM GENERAL APPEARANCE: The patient is awake, alert, and orientedx2, in no acute cardiopulmonary distress. NEUROLOGICAL: Motor is 4/4 in bilateral upper and lower extremities proximal to distal. No sensory deficits. HEENT: Face is symmetric. Pupils are equal and reactive. Extraocular movements are intact. NECK: Supple. No JVD. No thyromegaly. No submental, submandibular, pre- /postauricular, occipital or supraclavicular lymphadenopathy. CHEST: Normal chest expansion. No Telemetry. LUNGS: Absence of any rales, rhonchi or any wheezing. CARDIOVASCULAR: Regular. S1 and S2 normal. No appreciable rubs, murmurs or gallops. ABDOMEN: Abdominal tenderness on bilateral lower quadrant per palpation Soft and nondistended. There is no rebound, voluntary guarding, or rigidity. : Deferred. No [place]. EXTREMITIES: Non-edematous and not cyanotic. No clubbing. Good capillary refill. SKIN: left head bump Vital Sign (Last 24 Hours) 04/04/25 19:48 Temp 98.4 Pulse 85 Resp 20 B/P (MAP) 122/60 Pulse Ox 96 O2 Delivery Room Air* O2 Flow Rate 0 FiO2 21 LABS: Laboratory: Test 04/04/25 20:05 04/04/25 17:35 Range/Units Urine Color LIGHT-YELLOW YELLOW Urine Appearance CLEAR CLEAR Urine pH 8.0 5.0-8.0 Urine Specific [place] 1.010 1.001-1.031 Urine Protein NEGATIVE NEGATIVE mg/dL Urine Glucose (UA) NEGATIVE NEGATIVE mg/dL Urine Ketones NEGATIVE NEGATIVE mg/dL Urine Occult Blood NEGATIVE NEGATIVE Urine Nitrate NEGATIVE NEGATIVE Urine Bilirubin NEGATIVE NEGATIVE mg/dL Urine Urobilinogen 0.2 0.2-1.0 mg/dL Urine Leukocyte Esterase NEGATIVE NEGATIVE Jonathan/uL Urine RBC 0-1 0-1 /HPF Urine WBC 2-5 H 0-1 /HPF Urine Squamous Epithelial Cells RARE 0-2 /HPF Urine Bacteria None None Seen /HPF White Blood Count 10.1 4.8-10.8 K/uL Red Blood Count 3.18 L 4.00-5.50 MIL/uL Hemoglobin 8.7 L 12.0-16.0 g/dL Hematocrit 28.3 L 36-48 % Mean Corpuscular Volume 89.0 79-99 fL Mean Corpuscular Hemoglobin 27.4 27.0-33.0 pg Mean Corpuscular Hemoglobin Concent 30.7 L 32.0-36.0 g/dL Red Cell Distribution Width 14.6 11.0-15.5 % Platelet Count 499 H 130-400 K/uL Mean Platelet Volume 10.3 7.5-10.5 fL Immature Granulocyte % (Auto) 1.6 H 0-1 % Neutrophils (%) (Auto) 71.4 40.0-77.0 % Lymphocytes (%) (Auto) 15.3 L 21.0-51.0 % Monocytes (%) (Auto) 9.9 3.0-13.0 % Eosinophils (%) (Auto) 1.3 0.0-8.0 % Basophils (%) (Auto) 0.5 0.0-5.0 % Neutrophils # (Auto) 7.2 1.8-7.7 K/uL Lymphocytes # (Auto) 1.6 1.0-4.8 K/uL Monocytes # (Auto) 1.0 0.1-1.0 K/uL Eosinophils # (Auto) 0.13 0.00-0.70 K/uL Basophils # (Auto) 0.05 0.00-0.20 K/uL Absolute Immature Granulocyte (auto 0.16 0-1 K/uL Nucleated Red Blood Cells 0.0 0.0-0.19 % Red Blood Cell Morphology See comments Sodium Level 138 136-145 mmol/L Potassium Level 4.4 3.5-5.1 mmol/L Chloride Level 99 L 101-111 mmol/L Carbon Dioxide Level 32 21-32 mmol/L Blood Urea Nitrogen 25 H 7-18 mg/dL Creatinine 0.6 0.5-1.0 mg/dL Glomerular Filtration Rate Calc 89 >90 mL/min Random Glucose 103 70-105 mg/dL Total Calcium 9.2 8.5-10.1 mg/dL DIAGNOSTICS / RADIOLOGY: [ ] ASSESSMENT: Colocolic fistula POA Closed head injury POA S/P Fall injury at the residential POA Chronic anemia POA Acute thrombocytosis POA Failure to thrive POA S/P peg tube replacement in ER POA Debility POA Dementia POA Hypertension POA Constipation POA Acute on chronic diverticulitis POA PLAN: We will admit patient in medical telemetry We will keep nothing by mouth We will continue Zosyn IV Q 8 hours for empiric coverage We will start LR @ 75 ml / hr x2 bags and re evaluate We will start on Protonix 40 mg IV daily for GI prophylaxis We will replace electrolytes as needed per protocol We will add prn medication for fever,pain,cough , nausea and vomiting We will reconcile home meds once medlist available We will request dietary consultation We will seek general surgery consultation We will request labs in am Further orders to follow depending on above results Case discussed with attending physician and came up with above treatment and damaris n of care. ADVANCED CARE PLANNING 1. Which of the following were discussed? Hospice Care - No Therapeutic options - Yes Advance Directives - No Other discussions - 2. Discussed with who? Patient and daughter 3. Voluntary nature of this service was explained to the patient? Yes 4. Amount of time spent - 23 min 5. Reviewed by Physician? (if this service was performed by NPP) Yes Patient seen and examined by me. Agree with note by WASH WORKER SEE ADDITIONAL ORDERS PER CHART DISCUSSED WITH NURSING STAFF FILIPPO LEIVA MOSAIC LAYER Apr 04, 2025 21:57
[2025-04-04] MEDS ORDERED: MAGNESIUM 2GM PREMIX 50ML 50 ML IV PRN (22:00)
[2025-04-04] MEDS: [UNRECOGNIZED DRUG - OTHER] IV ONE (22:29)
[2025-04-04] MEDS: ZOSYN 3.375GM +NS 50ML IV ONE (22:29)
[2025-04-04] MEDS: LACTATED RINGERS 1000ML 1,000 ML IV SCH (22:29)
[2025-04-05] MEDS: ZOSYN 3.375GM +NS 50ML IVPB SCH (05:52)
[2025-04-05 06:38] LABS: IMMATURE GRANULOCYTE ABSOLUTE 0.10 K/uL (0-1); NUCLEATED RED BLOOD CELLS 0.4 % (0.0-0.19); PLATELET COUNT (AUTO) 474 K/uL (130-400); RED BLOOD CELL COUNT(AUTO) 3.09 MIL/uL (4.00-5.50); RED CELL DISTRIBUTION WIDTH 14.9 % (11.0-15.5); WHITE BLOOD COUNT (AUTO) 8.2 K/uL (4.8-10.8)
[2025-04-05 06:54] LABS: ASPARTATE AMINOTRANSFERASE 20.0 U/L (10-37); CREATININE 0.6 mg/dL (0.5-1.0); GLOMERULAR FILTR. RATE CALC 89.0 mL/min (>90); GLUCOSE,RANDOM 87.0 mg/dL (70-105); INR 0.97 (0.85-1.15); SODIUM SERUM 138.0 mmol/L (136-145); TOTAL PROTEIN, SERUM 6.8 g/dL (6.0-8.3); UREA NITROGEN, BLOOD 21.0 mg/dL (7-18)
--- NOTE | 2025-04-05 08:21 | NUR ---
NO TRAUMA FLOW SHEET DONE ON PT. IN CHART FROM SCIENTIFIC LINGUIST NOTED ON ARRIVAL.
[2025-04-05] MEDS ORDERED: 0.9%NACL 50ML IV SCH (09:00)
--- NOTE | 2025-04-05 10:25 | NUR ---
paged hospitalist for prn pain medications
--- NOTE | 2025-04-05 10:54 | NUR ---
orders recieved from dr solis for prn pain medications.
--- NOTE | 2025-04-05 12:40 | NUR ---
dcP: HOME vs Return to [facility] Per daughter Viviane May [id number], who states pt has been at [facility] since 03/16. Daughter was working on 'temporary fdc placement" with business office, but now that pt had a fall at the facility, she is re considering letting pt go back. per daughter, pt was showing improvement on her ambulation, but not her eating. Pt has a PEG and daughter feels that if she is taught how to do feedings, she should be able to do pt's feeding at home. Pt lives in rental home with her younger daughter. Family has purchased walker, transfer bench and bsc, and want a hospital bed if pt to dc home. Daughter to discuss with pt's PCP Jc Carlson and get process started for hospital bed. Pt uses [facility] for rx. Daughter to make decision on dcp and notify CM Addendum: 04/05/25 at 1252 by LITO ATKINS Amended: Links added.
--- NOTE | 2025-04-05 14:00 | PN ---
[facility] PROGRESS NOTE Date of Service: Apr 05, 2025 Time of Service: 13:57 SUBJECTIVE: This is an 85-year-old female, a resident of [facility] with past medical history of Dementia, Hypertension, constipation, anxiety, insomnia ,diverticulosis , anemia and PEG tube placement on 03/12/2025 who was brought to the ED via EMS coming from an [facility] due to head injury and patient peg tube was also pulled out requiring peg replacement.Daughter was at bedside during my evaluation and states that patient was admitted here last Mar 03 due to nausea,vomiting and diarrhea and patient was not eating anymore and that peg tube was decided to be placed she said and patient was transferred to [facility] for rehab she said.Patient also states that patient has dementia but becomes more confused today because patient got out of bed and walked and eventually fell on the floor hitting her left side of the head ,reason why she is brought here.[facility] said.Daughter also reports patient has chronic diarrhea. Seen and examined patient in the ER awake,alert and following commands.Patient continue to complain of lower abdominal pain.Denies fever, chills, nausea,vomiting,chest pain,palpitation,cough and shortness of breath. Latest vital signs temperature 98.4, heart rate 85, blood pressure 122/60 saturation 96% on room air. Labs: Hemoglobin 8.7, hematocrit 28, platelet count 499 sodium 138, chloride 99, BUN 25, GFR 89 glucose 103 total calcium 9.2. U rinalysis is unremarkable. CT head without contrast result revealed no acute intracranial abnormality. X-ray of the abdomen result revealed percutaneous gastrostomy tube appropriately position with in the gastric body without evidence of contrast extravasation. Abundant colonic fecal matter possibly reflecting constipation. CT abdomen and pelvis without contrast result revealed colonic diverticulosis. A symmetric circumferential wall thickening of the sigmoid colon with mild pericolonic fat stranding likely diverticulitis. There is a communication between the sigmoid colon and the medially placed cecum with loss of fat plane, suggestive of colocolic fistula. No interval changes. Incisional hernia in the anterior abdominal wall with omental fat herniation no interval changes. A few enlarged periumbilical and anterior abdominal wall lymph nodes no interval changes. While in the ER patient received Zosyn IV. As per ER CONTROLS PROJECT ENGINEER ,peg tube was replaced in the ER and while ER staff was performing in and out cath fecal material was obtained on [address] abdomen and pelvis was obtained and revealed colocolic fistula and ER CONTROLS PROJECT ENGINEER consulted Gen surgeon chain builder loom control .Will admit patient for further medical management 04/05 Patient was examined on the bedside. The patient's 2 daughters were with the patient. The history was taken from 1 of the daughters. According to the daughter the [facility] which she was brought to the hospital. The patient has dementia but was able to answer the questions regarding how she was feeling and pain. The patient complained of pain on her left side of the head on which she fell. As per the daughter, she is planning to move the patient to her home once she has finalized all the arrangements. 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 REVIEW OF SYSTEMS CONSTITUTIONAL: Denies fevers, chills, or night sweats. No unintentional weight loss reported. NEUROLOGICAL: Dementia ENT: No hearing loss, otalgia, otorrhea, rhinitis, rhinorrhea, hoarseness, or sore throat. CARDIOVASCULAR: Denies any exertional angina, dyspnea on exertion, orthopnea, paroxysmal nocturnal dyspnea, palpitations, life-threatening arrhythmias, claudication. PULMONARY: Denies any shortness of breath, cough, phlegm/sputum, hemoptysis, pleuritic chest pain. SLEEP: Denies morning headaches, daytime somnolence or napping. Denies difficulty falling asleep, staying asleep, waking from sleep. Denies knowledge of snoring. GASTROINTESTINAL: Denies any type of dysphagia to either liquids or solids. Denies nausea, vomiting, pyrosis, early satiety, abdominal pain, diarrhea, constipation, or changes in stool consistency or caliber. Denies coffee-ground emesis, hematemesis, hematochezia, or melanotic stools. GENITOURINARY: Denies frequency, urgency, nocturia, hematuria or incontinence (Storage/Irritative symptoms.) Low urinary stream, straining to void, urinary intermittency or hesitancy, splitting of the voiding stream, terminal dribbling. ENDOCRINOLOGIC: Denies polyuria, polydipsia, polyphagia or heat/cold intolerances. PHYSICAL EXAM GENERAL APPEARANCE: The patient is awake, alert, and orientedx2, in no acute cardiopulmonary distress. NEUROLOGICAL: Motor is 4/4 in bilateral upper and lower extremities proximal to distal. No sensory deficits. HEENT: Face is symmetric. Pupils are equal and reactive. Extraocular movements are intact. NECK: Supple. No JVD. No thyromegaly. No submental, submandibular, pre- /postauricular, occipital or supraclavicular lymphadenopathy. CHEST: Normal chest expansion. No Telemetry. LUNGS: Absence of any rales, rhonchi or any wheezing. CARDIOVASCULAR: Regular. S1 and S2 normal. No appreciable rubs, murmurs or gallops. ABDOMEN: Abdominal tenderness on bilateral lower quadrant per palpation Soft and nondistended. There is no rebound, voluntary guarding, or rigidity. : Deferred. No [place]. EXTREMITIES: Non-edematous and not cyanotic. No clubbing. Good capillary refill. SKIN: left head bump Vital Signs (last 8hr) Date Time Temp Pulse Resp B/P (MAP) Pulse Ox O2 Delivery O2 Flow Rate FiO2 04/05/25 12:06 98.4 77 15 120/66 90 Room Air* 0 21 04/05/25 11:18 98.8 76 17 100/57 95 Room Air* 0 21 04/05/25 08:16 98.8 82 13 97/60 96 Room Air* 0 21 LABS: Laboratory: Test 04/05/25 06:20 04/04/25 20:05 04/04/25 17:35 Range/Units White Blood Count 8.2 4.8-10.8 K/uL Red Blood Count 3.09 L 4.00-5.50 MIL/uL Hemoglobin 8.4 L 12.0-16.0 g/dL Hematocrit 27.4 L 36-48 % Mean Corpuscular Volume 88.7 79-99 fL Mean Corpuscular Hemoglobin 27.2 27.0-33.0 pg Mean Corpuscular Hemoglobin Concent 30.7 L 32.0-36.0 g/dL Red Cell Distribution Width 14.9 11.0-15.5 % Platelet Count 474 H 130-400 K/uL Mean Platelet Volume 10.1 7.5-10.5 fL Immature Granulocyte % (Auto) 1.2 H 0-1 % Neutrophils (%) (Auto) 60.5 40.0-77.0 % Lymphocytes (%) (Auto) 25.1 21.0-51.0 % Monocytes (%) (Auto) 11.1 3.0-13.0 % Eosinophils (%) (Auto) 1.6 0.0-8.0 % Basophils (%) (Auto) 0.5 0.0-5.0 % Neutrophils # (Auto) 5.0 1.8-7.7 K/uL Lymphocytes # (Auto) 2.1 1.0-4.8 K/uL Monocytes # (Auto) 0.9 0.1-1.0 K/uL Eosinophils # (Auto) 0.13 0.00-0.70 K/uL Basophils # (Auto) 0.04 0.00-0.20 K/uL Absolute Immature Granulocyte (auto 0.10 0-1 K/uL Nucleated Red Blood Cells 0.4 H 0.0-0.19 % Prothrombin Time 10.3 9.6-11.6 SEC Prothromb Time International Ratio 0.97 0.85-1.15 Activated Partial Thromboplast Time 24.0 L 26.3-35.5 SEC Sodium Level 138 136-145 mmol/L Potassium Level 4.5 3.5-5.1 mmol/L Chloride Level 100 L 101-111 mmol/L Carbon Dioxide Level 31 21-32 mmol/L Blood Urea Nitrogen 21 H 7-18 mg/dL Creatinine 0.6 0.5-1.0 mg/dL Glomerular Filtration Rate Calc 89 >90 mL/min Random Glucose 87 70-105 mg/dL Total Calcium 8.8 8.5-10.1 mg/dL Magnesium Level 2.10 1.80-2.40 mg/dL Total Bilirubin 0.4 0.2-1.0 mg/dL Aspartate Amino Transf (AST/SGOT) 20 10-37 U/L Alanine Aminotransferase (ALT/SGPT) 21 12-78 U/L Alkaline Phosphatase 111 50-136 U/L Total Protein 6.8 6.0-8.3 g/dL Albumin 2.4 L 3.5-5.0 g/dL Urine Color LIGHT-YELLOW YELLOW Urine Appearance CLEAR CLEAR Urine pH 8.0 5.0-8.0 Urine Specific [place] 1.010 1.001-1.031 Urine Protein NEGATIVE NEGATIVE mg/dL Urine Glucose (UA) NEGATIVE NEGATIVE mg/dL Urine Ketones NEGATIVE NEGATIVE mg/dL Urine Occult Blood NEGATIVE NEGATIVE Urine Nitrate NEGATIVE NEGATIVE Urine Bilirubin NEGATIVE NEGATIVE mg/dL Urine Urobilinogen 0.2 0.2-1.0 mg/dL Urine Leukocyte Esterase NEGATIVE NEGATIVE Jonathan/uL Urine RBC 0-1 0-1 /HPF Urine WBC 2-5 H 0-1 /HPF Urine Squamous Epithelial Cells RARE 0-2 /HPF Urine Bacteria None None Seen /HPF Red Blood Cell Morphology See comments Current Medications Medications (Trade) Dose Ordered Sig/Sharona Route PRN Reason Start Time Stop Time Status Last Admin Dose Admin Acetaminophen (TYLenol 325MG TAB) 650 mg Q4H PRN PO TEMPERATURE GREATER THAN 101.5 04/05/25 11:00 05/05/25 10:59 Acetaminophen (TYLenol 325MG TAB) 650 mg Q6H PRN PO MILD PAIN (1-3) 04/05/25 11:00 05/05/25 10:59 Lactated Ringer's 1,000 ml @ 75 mls/hr [id number] IV 04/04/25 22:00 05/04/25 21:59 04/04/25 22:29 75 MLS/HR Magnesium Sulfate 50 ml @ 0 mls/hr PROTOCOL PRN IV OTHER [SEE ORDER COMMENTS] 04/04/25 22:00 05/04/25 21:59 Morphine Sulfate (morPHINE 4MG SYG) 1 mg Q6H PRN IVP SEVERE PAIN (7-10) 04/05/25 11:00 04/12/25 10:59 04/05/25 11:53 1 MG Ondansetron HCl (zoFRAN 4MG INJ) 4 mg Q6H PRN IV NAUSEA/VOMITING 04/04/25 22:00 05/04/25 21:59 Pantoprazole Sodium (PROTonix 40MG INJ) 40 mg DAILY IVP 04/05/25 09:00 05/05/25 08:59 04/05/25 09:58 40 MG Piperacillin Sod/ Tazobactam Sod (Zosyn 3.375gm+NS 50ml) 3.375 gm Q8H IVPB 04/05/25 05:00 04/15/25 04:59 04/05/25 05:52 3.375 GM Potassium Chloride 100 ml @ 50 mls/hr AD PRN IV POTASSIUM PROTOCOL 04/04/25 22:00 05/04/25 21:59 Sodium Chloride (NS 50ml) 50 ml AD IV 04/05/25 09:00 04/04/25 23:11 DC DIAGNOSTICS / RADIOLOGY: PATIENT: MODESTA CHAND MR#: [id number] : 1940 SEX: F AGE: 85 LOCATION: [facility] ORDER 52 STATUS: REG ER REPORT#: [id number] SERVICE 51 REASON: head injury ORDERING PHYSICIAN: HERMINIO DASILVA PAC PROCEDURE: HEAD WO - CT HEAD/BRAIN W/O CONTRAST EXAM: CT Head Without IV contrast. CLINICAL HISTORY: head injury TECHNIQUE: Axial computed tomography images of the head/brain without intravenous contrast. COMPARISON: None provided. FINDINGS: BRAIN: Age-appropriate atrophy. 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 No evidence of acute hemorrhage. No mass lesion. No CT evidence for acute territorial infarct. No midline shift or extra-axial collections. VENTRICLES: No hydrocephalus. ORBITS: The orbits are unremarkable. SINUSES AND MASTOIDS: The paranasal sinuses and mastoid air cells are clear. BONES: No fracture. SOFT TISSUES: Unremarkable. IMPRESSION: No acute intracranial abnormality. /[place] DICTATED BY: SUNIL SPEAR MD DATE: 04/04/251850 ELECTRONICALLY SIGNED BY: SUNIL SPEAR MD DATE: 04/04/251850 PATIENT: MODESTA CHAND MR#: [id number] : 1940 SEX: F AGE: 85 LOCATION: [facility] ORDER 28 STATUS: REG ER REPORT#: [id number] SERVICE 24 REASON: PEG tube placement confirmation ORDERING PHYSICIAN: HERMINIO DASILVA PAC PROCEDURE: ABD 1VW - ABD 1VW EXAM: CR Abdomen, 1 View. CLINICAL HISTORY: PEG tube placement confirmation COMPARISON: Radiograph dated March 16, 2025 Findings: AP view of the abdomen is submitted. Percutaneous gastrostomy tube terminates within the gastric body. Enteric contrast opacifies the gastric fundus. No extravasation noted to suggest a leak. There is abundant colonic fecal matter that may reflect constipation. There is a nonobstructive bowel gas pattern. Incidental atherosclerotic vascular calcifications are noted. IMPRESSION: 1. Percutaneous gastrostomy tube appropriately positioned within the gastric body without evidence of contrast extravasation. 2. Abundant colonic fecal matter, possibly reflecting constipation. /[place] DICTATED BY: LISA BECKHAM Jr., MD DATE: 04/04/252001 ELECTRONICALLY SIGNED BY: LISA BECKHAM Jr., MD DATE: 04/04/252001 PATIENT: MODESTA CHAND MR#: [id number] : 1940 SEX: F AGE: 85 LOCATION: [facility] ORDER 26 STATUS: [facility] REPORT#: [id number] SERVICE 25 REASON: ABdominal discomfort, R/O fistula ORDERING PHYSICIAN: HERMINIO DASILVA PAC PROCEDURE: ABD PEL WO - CT ABDOMEN/PELVIS W/O CONTRAST EXAM: CT Abdomen and Pelvis Without IV contrast CLINICAL HISTORY: Abdominal discomfort, to rule out a fistula. TECHNIQUE: Axial computed tomography images of the abdomen and pelvis without intravenous contrast. CONTRAST: No IV contrast. COMPARISON: CT dated March 03, 2025. FINDINGS: LUNG BASES: Bibasilar atelectasis with parenchymal scarring. Coronary artery calcifications. Aortic valve calcifications. Otherwise, the lung bases appear clear. No pleural effusions are seen. LIVER: Unremarkable. GALLBLADDER AND BILE DUCTS: The gallbladder is surgically removed. PANCREAS: Unremarkable. SPLEEN: Unremarkable. ADRENAL GLANDS: Unremarkable. KIDNEYS, URETERS, AND BLADDER: Tiny concretion in the mid calyx of the right kidney and in the mid and lower calyx of the left kidney. A few cysts in the left kidney, the largest measuring approximately 12 x 10 mm in the upper pole of the left kidney. There is no hydronephrosis or hydroureter. STOMACH AND BOWEL: There is a gastrostomy tube in place. The stomach is distended. No wall thickening. Colonic diverticulosis. The cecum is medially placed. There is an asymmetric circumferential wall thickening of the sigmoid colon with mild pericolonic fat stranding. 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 The terminal ileum is adherent to the sigmoid colon. PERITONEUM: Approximately 5.7 x 4.6 cm defect in the anterior abdominal wall involving the supra and infraumbilical region, with herniation of the omental fat, suggestive of incisional hernia is likely. No free fluid. No free air. LYMPH NODES: A few enlarged, rounded lymph nodes in the periumbilical region and in the soft tissue plane of the anterior abdominal wall adjacent to the incisional hernia, the largest measuring approximately 1.1 x 1 cm. REPRODUCTIVE: Unremarkable as visualized. VASCULATURE: Atherosclerotic changes in the visualized arterial vasculature in the form of fibrocalcified plaque. No evidence of abdominal aortic aneurysm. BONES: Spinal degenerative changes. Anterior offset of L4 vertebra over L5, due to facet joint arthropathy. No aggressive appearing osseous lesion. No acute osseous pathology is evident. IMPRESSION: 1. Colonic diverticulosis. Asymmetric circumferential wall thickening of the sigmoid colon with mild pericolonic fat stranding, likely diverticulitis. There is a communication between the sigmoid colon and the medially placed cecum with loss of fat plane, suggestive of colocolic fistula. No interval changes. 2. Incisional hernia in the anterior abdominal wall with omental fat herniation, no interval changes. 3. A few enlarged periumbilical and anterior abdominal wall lymph nodes, no interval changes. /[place] DICTATED BY: LISA BECKHAM Jr., MD DATE: 04/04/252127 ELECTRONICALLY SIGNED BY: LISA BECKHAM Jr., MD DATE: 04/04/252127 ASSESSMENT: Colocolic fistula POA Closed head injury POA S/P [facility] POA Chronic anemia POA Acute thrombocytosis POA Failure to thrive POA S/P peg tube replacement in ER POA Debility POA Dementia POA Hypertension POA Constipation POA Acute on chronic diverticulitis POA PLAN: Closed head injury ,S/P [facility] scan head was negative for any acute intracranial abnormality Blood pressure today is 120/66 Patient is on LR @ 75ml/hr For pain she is on morphine sulfate and acetaminophen p.r.n. Colocolic fistula CT scan of the abdomen showed communication between the sigmoid colon and the immediately placed cecum with loss of fat plane which is suggestive of colocolic fistula. General Surgery is consulted Patient is on Protonix 40 mg OD Started on Zosyn - day 1 Chronic anemia Hemoglobin today is 8.4 Monitor H&H PHYSICIAN STATEMENT I was present with the resident during the History and Physical exam and I have reviewed the resident's note. This case was discussed with the resident and I agree with the history, physical exam and medical decision making as documented. Additions/exceptions/observations were directly added to the notes. Cedric Fernandez MD, SYED M MD Apr 05, 2025 14:00
[2025-04-05 16:30] VITALS: BP 103/59; PULSE 80; RESP 17; TEMP 97.9; O2SAT 96
--- NOTE | 2025-04-05 16:30 | NUR ---
received from ER via bed iv intact verbally responsive denies pain peg tube in plce stable cond.
--- NOTE | 2025-04-05 17:35 | CONS ---
CONSULT NOTE: Consulting physician:Dr Martinez Consulting service: General surgery Reason for consultation: colocolonic fistula History of present illness: This is an 85-year-old female currently a resident at [facility] with significant history of dementia that has been consulted to surgery after presenting to the hospital after sustaining a fall getting out of bed. For head injury patient is following neurosurgery team. But due to imaging concerns noted on recent CT surgery was consulted for concerns for colocolonic fistula. Time of exam patient is resting comfortably with family at bedside. Patient has no point has reported any abdominal pain. PEG feeds has been held at this time case of any potential surgical intervention. Patient otherwise stable. Nursing reporting that ER staff concern for fecal material within catheter placement doctor Abraham has reviewed imaging and no air seen within bladder. Family reported that patient has sometimes soils herself in could be old stool unfortunately likely appropriately. Patient otherwise stable at time of exam with no other acute events reported Medical history: EGD with biopsy, peg tube placement, Cholecystectomy, appendectomy hysterectomy and left knee surgery PAST SOCIAL HISTORY: Patient lives IN [facility]. Patient cigarette, alcohol and recreational drug use FAMILY HISTORY: Hypertension and cardiovascular disease Review of systems: General: No Fever, No Chills, No Night Sweats, No Fatigue, No Malaise, No Appetite, No Other HEENT: No Head Aches, No Visual Changes, No Eye Pain, No Ear Pain, No Dysphasia, No Sinus Congestion, No Post Nasal Drip, No Sore Throat, No Other Pulmonary: No Dyspnea, No Cough, No Pleuritic Chest Pain, No Other Cardiovascular: No: Chest Pain, Palpitations, Orthopnea, Paroxysmal No Dyspnea, Edema, Lt Headedness, Other Gastrointestinal: No: Nausea, Vomiting, Diarrhea, Constipation, Melena, Hematochezia, Other Genitourinary: No Dysuria, No Frequency, No Incontinence, No Hematuria, No Retention, No Other Musculoskeletal: No: other, neck pain, shoulder pain, arm pain, back pain, hand pain, leg pain, foot pain Skin: No Urticaria, No Rash, No Other Neurological: No: Weakness, Numbness, Incoordination, Change in speech, Confusi on, Seizures, Other Physical exam: General: Awake alert and oriented pleasant manner Heart: Regular rate and rhythm} Lungs: Clear to auscultation no distress Abdomen: [Soft, nontender, nondistended Assessment: This is an 85-year-old female with concerns of colocolonic fistula Plan: At this point in time no immediate surgical intervention needed Patient reporting no abdominal pain Patient will be cleared to start with continuous tube feeds through PEG to avoid any issues with emesis Surgical team to be updated with any further acute events Repeat CBC CMP to monitor electrolytes Doctor Abraham has reviewed images and agrees with plan at this time Surgical case has been discussed with my supervising physician in the above plan was formulated and agreed upon Supervising physicians evaluation the patient be done within next 24 hours We appreciate the hospitalist team for us to participate in patient's care. Greater than 55 minutes of time spent patient, reviewing chart, working on documentation MARC EISENBERG Jr. PAC Apr 05, 2025 17:35
[2025-04-05 20:00] VITALS: BP 107/64; PULSE 80; RESP 20; TEMP 97.5
[2025-04-05 21:01] VITALS: PULSE 0; PULSE 95; RESP 20
[2025-04-06] VITALS (7 sets, daily range): BP systolic 96–140; BP diastolic 53–85; PULSE 66–84; RESP 18–23; TEMP 97.4–98.3; O2SAT 94
[2025-04-06 03:56] LABS: NUCLEATED RED BLOOD CELLS 0.0 % (0.0-0.19); PLATELET COUNT (AUTO) 448.0 K/uL (130-400); RED BLOOD CELL COUNT(AUTO) 2.84 MIL/uL (4.00-5.50); RED CELL DISTRIBUTION WIDTH 14.6 % (11.0-15.5); WHITE BLOOD COUNT (AUTO) 7.1 K/uL (4.8-10.8)
[2025-04-06 04:09] LABS: ASPARTATE AMINOTRANSFERASE 15.0 U/L (10-37); CREATININE 0.6 mg/dL (0.5-1.0); GLOMERULAR FILTR. RATE CALC 89.0 mL/min (>90); GLUCOSE,RANDOM 77.0 mg/dL (70-105); SODIUM SERUM 137.0 mmol/L (136-145); TOTAL PROTEIN, SERUM 6.2 g/dL (6.0-8.3); UREA NITROGEN, BLOOD 21.0 mg/dL (7-18)
[2025-04-06] MEDS: LACTULOSE 20 GM/30 ML UDCUP PO ONE (11:06)
--- NOTE | 2025-04-06 11:36 | NUR ---
Nutritional Note: Chart, meds, and labs Reviewed. Pt with PEG feeds on hold at this time case of any potential surgical intervention as per MD. Recommend: -Continue PEG hold per medical management; reassess for EN tolerance. - if prolong (>3-5days), if unable to tolerate EN, evaluated for PN due to malabsorption risk. Provide Jevity 1.5 @ 40 ml/hr x 22 hrs + FWF 200 Q4H Provides: 1320 kcals, 56 gm pro, 1868 ml per day -If bolus provide: 4 cans of Jevity 1.5 (times: 0900,1400, 1900, 0000) 30 ml before and after each feed, 948 ml by EOD - Electrolyte replacements per protocol -adult MVI -Monitor feeding tolerance, %, wt, and labs -If No BM >3days consider bowel stimulant. - Notify RD if additional nutrition concerns arise. SEE RD Nutritional Assessment for additional assessment information. Addendum: 04/06/25 at [address] Amended: Links added.
--- NOTE | 2025-04-06 12:00 | NUR ---
Gladis scan performed at bed side retention 767 ml straight cath 1200 output urine ashley well in formed dr Star Hubbard aware no further orders
--- NOTE | 2025-04-06 13:54 | PN ---
[facility] PROGRESS NOTE Date of Service: Apr 06, 2025 Time of Service: 13:47 SUBJECTIVE: This is an 85-year-old female, a resident of [facility] with past medical history of Dementia, Hypertension, constipation, anxiety, insomnia ,diverticulosis , anemia and PEG tube placement on 03/12/2025 who was brought to the ED via EMS coming from an [facility] due to head injury and patient peg tube was also pulled out requiring peg replacement.Daughter was at bedside during my evaluation and states that patient was admitted here last Mar 03 due to nausea,vomiting and diarrhea and patient was not eating anymore and that peg tube was decided to be placed she said and patient was transferred to [facility] for rehab she said.Patient also states that patient has dementia but becomes more confused today because patient got out of bed and walked and eventually fell on the floor hitting her left side of the head ,reason why she is brought here.Patient is also on continuous peg tube feeding at the assisted she said.Daughter also reports patient has chronic diarrhea. Seen and examined patient in the ER awake,alert and following commands.Patient continue to complain of lower abdominal pain.Denies fever, chills, nausea,vomiting,chest pain,palpitation,cough and shortness of breath. Latest vital signs temperature 98.4, heart rate 85, blood pressure 122/60 saturation 96% on room air. Labs: Hemoglobin 8.7, hematocrit 28, platelet count 499 sodium 138, chloride 99, BUN 25, GFR 89 glucose 103 total calcium 9.2. U rinalysis is unremarkable. CT head without contrast result revealed no acute intracranial abnormality. X-ray of the abdomen result revealed percutaneous gastrostomy tube appropriately position with in the gastric body without evidence of contrast extravasation. Abundant colonic fecal matter possibly reflecting constipation. CT abdomen and pelvis without contrast result revealed colonic diverticulosis. A symmetric circumferential wall thickening of the sigmoid colon with mild pericolonic fat stranding likely diverticulitis. There is a communication between the sigmoid colon and the medially placed cecum with loss of fat plane, suggestive of colocolic fistula. No interval changes. Incisional hernia in the anterior abdominal wall with omental fat herniation no interval changes. A few enlarged periumbilical and anterior abdominal wall lymph nodes no interval changes. While in the ER patient received Zosyn IV. As per ER SHAKE CUTTER ,peg tube was replaced in the ER and while ER staff was performing in and out cath fecal material was obtained on [address] abdomen and pelvis was obtained and revealed colocolic fistula and ER SHAKE CUTTER consulted Gen surgeon environmental inspector .Will admit patient for further medical management 04/05 Patient was examined on the bedside. The patient's 2 daughters were with the patient. The history was taken from 1 of the daughters. According to the daughter the [facility] after which she was brought to the hospital. The patient has dementia but was able to answer the questions regarding how she was feeling and pain. The patient complained of pain on her left side of the head on which she fell. As per the daughter, she is planning to move the patient to her home once she has finalized all the arrangements. 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 04/06 Patient was examined on the bedside. The patient's 2 daughters were with the patient. General surgery was consulted yesterday and they recommended no surgical intervention at the time and and to start the PEG tube feed. The patient complained of pain in the lower abdomen therefore a bladder scan was ordered as per the patient's daughter the patient wants to go to the washroom for urination and defecation but she has been told to not ambulate at the time therefore, as per the daughter the patient is holding in her urine and stool. Lactulose was ordered to help with patient's defecation. Patient SNF facility [facility] was consulted to inquire about the patient's PEG tube feed given to her at [facility] so that can be restarted here. Physical therapy is ordered to help patient ambulate REVIEW OF SYSTEMS CONSTITUTIONAL: Denies fevers, chills, or night sweats. No unintentional weight loss reported. NEUROLOGICAL: Dementia ENT: No hearing loss, otalgia, otorrhea, rhinitis, rhinorrhea, hoarseness, or so re throat. CARDIOVASCULAR: Denies any exertional angina, dyspnea on exertion, orthopnea, paroxysmal nocturnal dyspnea, palpitations, life-threatening arrhythmias, claudication. PULMONARY: Denies any shortness of breath, cough, phlegm/sputum, hemoptysis, pleuritic chest pain. SLEEP: Denies morning headaches, daytime somnolence or napping. Denies difficulty falling asleep, staying asleep, waking from sleep. Denies knowledge of snoring. GASTROINTESTINAL: Denies any type of dysphagia to either liquids or solids. Denies nausea, vomiting, pyrosis, early satiety, abdominal pain, diarrhea, constipation, or changes in stool consistency or caliber. Denies coffee-ground emesis, hematemesis, hematochezia, or melanotic stools. GENITOURINARY: Denies frequency, urgency, nocturia, hematuria or incontinence (Storage/Irritative symptoms.) Low urinary stream, straining to void, urinary intermittency or hesitancy, splitting of the voiding stream, terminal dribbling. ENDOCRINOLOGIC: Denies polyuria, polydipsia, polyphagia or heat/cold intolerances. PHYSICAL EXAM GENERAL APPEARANCE: The patient is awake, alert, and orientedx2, in no acute cardiopulmonary distress. NEUROLOGICAL: Motor is 4/4 in bilateral upper and lower extremities proximal to distal. No sensory deficits. HEENT: Face is symmetric. Pupils are equal and reactive. Extraocular movements are intact. NECK: Supple. No JVD. No thyromegaly. No submental, submandibular, pre-/postauricular, occipital or supraclavicular lymphadenopathy. CHEST: Normal chest expansion. No Telemetry. LUNGS: Absence of any rales, rhonchi or any wheezing. CARDIOVASCULAR: Regular. S1 and S2 normal. No appreciable rubs, murmurs or gallops. ABDOMEN: Abdominal tenderness on bilateral lower quadrant per palpation Soft and nondistended. There is no rebound, voluntary guarding, or rigidity. : Deferred. No Villasenor. EXTREMITIES: Non-edematous and not cyanotic. No clubbing. Good capillary refill. SKIN: left head bump Vital Signs (last 8hr) Date Time Temp Pulse Resp B/P (MAP) Pulse Ox O2 Delivery O2 Flow Rate FiO2 04/06/25 12:00 98.1 77 22 111/69 97 Room Air 04/06/25 08:00 97.9 66 20 123/66 92 Room Air 04/06/25 07:45 94 Nasal Cannula* 2 28 LABS: Laboratory: Test 04/06/25 03:27 04/05/25 06:20 04/04/25 20:05 04/04/25 17:35 Range/Units White Blood Count 7.1 4.8-10.8 K/uL Red Blood Count 2.84 L 4.00-5.50 MIL/uL Hemoglobin 7.8 L 12.0-16.0 g/dL Hematocrit 24.9 L 36-48 % Mean Corpuscular Volume 87.7 79-99 fL Mean Corpuscular Hemoglobin 27.5 27.0-33.0 pg Mean Corpuscular Hemoglobin Concent 31.3 L 32.0-36.0 g/dL Red Cell Distribution Width 14.6 11.0-15.5 % Platelet Count 448 H 130-400 K/uL Mean Platelet Volume 10.4 7.5-10.5 fL Nucleated Red Blood Cells 0.0 0.0-0.19 % Sodium Level 137 136-145 mmol/L Potassium Level 4.1 3.5-5.1 mmol/L Chloride Level 101 101-111 mmol/L Carbon Dioxide Level 28 21-32 mmol/L Blood Urea Nitrogen 21 H 7-18 mg/dL Creatinine 0.6 0.5-1.0 mg/dL Glomerular Filtration Rate Calc 89 >90 mL/min Random Glucose 77 70-105 mg/dL Total Calcium 8.7 8.5-10.1 mg/dL Total Bilirubin 0.5 # 0.2-1.0 mg/dL Aspartate Amino Transf (AST/SGOT) 15 10-37 U/L Alanine Aminotransferase (ALT/SGPT) 16 # 12-78 U/L Alkaline Phosphatase 105 50-136 U/L Total Protein 6.2 6.0-8.3 g/dL Albumin 2.2 L 3.5-5.0 g/dL Immature Granulocyte % (Auto) 1.2 H 0-1 % Neutrophils (%) (Auto) 60.5 40.0-77.0 % Lymphocytes (%) (Auto) 25.1 21.0-51.0 % Monocytes (%) (Auto) 11.1 3.0-13.0 % Eosinophils (%) (Auto) 1.6 0.0-8.0 % Basophils (%) (Auto) 0.5 0.0-5.0 % Neutrophils # (Auto) 5.0 1.8-7.7 K/uL Lymphocytes # (Auto) 2.1 1.0-4.8 K/uL Monocytes # (Auto) 0.9 0.1-1.0 K/uL Eosinophils # (Auto) 0.13 0.00-0.70 K/uL Basophils # (Auto) 0.04 0.00-0.20 K/uL Absolute Immature Granulocyte (auto 0.10 0-1 K/uL Prothrombin Time 10.3 9.6-11.6 SEC Prothromb Time International Ratio 0.97 0.85-1.15 Activated Partial Thromboplast Time 24.0 L 26.3-35.5 SEC Magnesium Level 2.10 1.80-2.40 mg/dL Urine Color LIGHT-YELLOW YELLOW Urine Appearance CLEAR CLEAR Urine pH 8.0 5.0-8.0 Urine Specific Boykin 1.010 1.001-1.031 Urine Protein NEGATIVE NEGATIVE mg/dL Urine Glucose (UA) NEGATIVE NEGATIVE mg/dL Urine Ketones NEGATIVE NEGATIVE mg/dL Urine Occult Blood NEGATIVE NEGATIVE Urine Nitrate NEGATIVE NEGATIVE Urine Bilirubin NEGATIVE NEGATIVE mg/dL Urine Urobilinogen 0.2 0.2-1.0 mg/dL Urine Leukocyte Esterase NEGATIVE NEGATIVE Jonathan/uL Urine RBC 0-1 0-1 /HPF Urine WBC 2-5 H 0-1 /HPF Urine Squamous Epithelial Cells RARE 0-2 /HPF Urine Bacteria None None Seen /HPF Red Blood Cell Morphology See comments Current Medications Medications (Trade) Dose Ordered Sig/Sharona Route PRN Reason Start Time Stop Time Status Last Admin Dose Admin Acetaminophen (TYLenol 325MG TAB) 650 mg Q4H PRN PO TEMPERATURE GREATER THAN 101.5 04/05/25 11:00 05/05/25 10:59 Acetaminophen (TYLenol 325MG TAB) 650 mg Q6H PRN PO MILD PAIN (1-3) 04/05/25 11:00 05/05/25 10:59 04/06/25 11:12 650 MG Lactated Ringer's 1,000 ml @ 75 mls/hr [id number] IV 04/04/25 22:00 05/04/25 21:59 04/06/25 13:24 75 MLS/HR Magnesium Sulfate 50 ml @ 0 mls/hr PROTOCOL PRN IV OTHER [SEE ORDER COMMENTS] 04/04/25 22:00 05/04/25 21:59 Morphine Sulfate (morPHINE 4MG SYG) 1 mg Q6H PRN IVP SEVERE PAIN (7-10) 04/05/25 11:00 04/12/25 10:59 04/06/25 09:12 1 MG Ondansetron HCl (zoFRAN 4MG INJ) 4 mg Q6H PRN IV NAUSEA/VOMITING 04/04/25 22:00 05/04/25 21:59 Pantoprazole Sodium (PROTonix 40MG INJ) 40 mg DAILY IVP 04/05/25 09:00 05/05/25 08:59 04/05/25 09:58 40 MG Piperacillin Sod/ Tazobactam Sod (Zosyn 3.375gm+NS 50ml) 3.375 gm Q8H IVPB 04/05/25 05:00 04/15/25 04:59 04/06/25 13:20 3.375 GM Potassium Chloride 100 ml @ 50 mls/hr AD PRN IV POTASSIUM PROTOCOL 04/04/25 22:00 05/04/25 21:59 Sodium Chloride (NS 50ml) 50 ml AD IV 04/05/25 09:00 04/04/25 23:11 DC DIAGNOSTICS / RADIOLOGY: [ ] ASSESSMENT: Colocolic fistula POA Closed head injury POA S/P Fall injury at the assisted POA Chronic anemia POA Acute thrombocytosis POA Failure to thrive POA S/P peg tube replacement in ER POA Debility POA Dementia POA Hypertension POA Constipation POA Acute on chronic diverticulitis POA PLAN: Closed head injury ,S/P Fall injury at the assisted CT scan head was negative for any acute intracranial abnormality Blood pressure today is 111/66 Patient is on LR @ 75ml/hr For pain she is on morphine sulfate and acetaminophen p.r.n. Colocolic fistula CT scan of the abdomen showed communication between the sigmoid colon and the immediately placed cecum with loss of fat plane which is suggestive of colocolic fistula. General Surgery is consulted. They recommended no surgical intervention at the time and and to start the PEG tube feed Ordered lactulose for constipation. Bladder scan for lower abdominal pain PT ordered for ambulation Consult SNF [facility] to inquire about patients PEG tube feed Patient is on Protonix 40 mg OD Started on Zosyn - day 2 Chronic anemia Hemoglobin today is 8.4 Monitor H&H ATTESTATION BY PHYSICIAN I have seen and examined the patient. I reviewed the documentation, medical decision making, and treatment plan as noted by the resident physician above. I agree with the findings and plan of care. CORTEZ CHRISTOPHER MD, SYED M MD Apr 06, 2025 13:54
--- NOTE | 2025-04-06 15:07 | PN ---
This is a 85-year-old female consulted to surgery for concerns of colocolonic fistula Interval history: This 85-year-old female seen in her room Orders for feeds to commence on hold due to noted residuals of PEG Patient reported some bladder discomfort earlier bladder scan performed were1 L of urine was noted Villasenor inserted in the urine removed Lactulose ordered to help with bowel function PT currently pending Physical exam General: Awake alert and oriented Heart: Regular rate and rhythm} Lungs: Clear to auscultation no distress Abdomen: [Soft, nontender, nondistended Assessment : This is an 85-year-old female with concerns of colovesicular fistula Plan: At this point we will continue with nonoperative management Await for bowel function to return in patient to be started on continuous feeds through PEG Continue with straight cath as needed for urine retention Doctor Abraham to be updated in patient's status but no surgical intervention at this time Surgical team to sign off. Thank you Surgical case has been discussed with my supervising physician in the above plan was formulated and agreed upon We appreciate the hospitalist team for us to participate in patient's care. Greater than 45 minutes of time spent patient, reviewing chart, working on documentation Vitals/Labs Vital Signs Date Time Temp Pulse Resp B/P (MAP) Pulse Ox O2 Delivery O2 Flow Rate FiO2 04/06/25 12:00 98.1 77 22 111/69 97 Room Air 04/06/25 07:45 2 28 Laboratory Tests 04/06/25 03:27 Medications Current Medications Diatrizoate Meglum/ Diatrizoate Sod 30 ml STK-MED ONCE .ROUTE; Start 04/04/25 at 18:19; Stop 04/04/25 at 18:19; Status DC Piperacillin Sod/ Tazobactam Sod 3.375 gm ONCE ONCE IV Last administered on 04/04/25at 22:29; Start 04/04/25 at 21:00; Stop 04/04/25 at 21:01; Status DC Sodium Chloride 1,428 ml @ 100 mls/hr ONCE ONCE IV Last administered on 04/04/25at 22:29; Start 04/04/25 at 21:00; Stop 04/05/25 at 11:16; Status DC Ondansetron HCl 4 mg Q6H PRN IV; Start 04/04/25 at 22:00; Stop 05/04/25 at 21:59 Lactated Ringer's 1,000 ml @ 75 mls/hr [id number] IV Last administered on 04/06/25at 13:24; Start 04/04/25 at 22:00; Stop 05/04/25 at 21:59 Magnesium Sulfate 50 ml @ 0 mls/hr PROTOCOL PRN IV; Start 04/04/25 at 22:00; Stop 05/04/25 at 21:59 Potassium Chloride 100 ml @ 50 mls/hr AD PRN IV; Start 04/04/25 at 22:00; Stop 05/04/25 at 21:59 Piperacillin Sod/ Tazobactam Sod 3.375 gm Q8H IVPB Last administered on 04/06/25at 13:20; Start 04/05/25 at 05:00; Stop 04/15/25 at 04:59 Sodium Chloride 50 ml AD IV; Start 04/05/25 at 09:00; Stop 04/04/25 at 23:11; Status DC Pantoprazole Sodium 40 mg DAILY IVP Last administered on 04/05/25at 09:58; Start 04/05/25 at 09:00; Stop 05/05/25 at 08:59 Acetaminophen 650 mg Q6H PRN PO Last administered on 04/06/25at 11:12; Start 04/05/25 at 11:00; Stop 05/05/25 at 10:59 Acetaminophen 650 mg Q4H PRN PO; Start 04/05/25 at 11:00; Stop 05/05/25 at 10:59 Morphine Sulfate 1 mg Q6H PRN IVP Last administered on 04/06/25at 09:12; Start 04/05/25 at 11:00; Stop 04/12/25 at 10:59 Lactulose 20 gm ONCE ONCE PO Last administered on 04/06/25at 11:06; Start 04/06/25 at 11:00; Stop 04/06/25 at 11:01; Status DC MARC EISENBERG Jr. PAC Apr 06, 2025 15:07
[2025-04-07] VITALS (8 sets, daily range): BP systolic 107–155; BP diastolic 52–80; PULSE 66–78; RESP 16–20; TEMP 98.1–98.4; O2SAT 98
[2025-04-07 04:07] LABS: NUCLEATED RED BLOOD CELLS 0.0 % (0.0-0.19); PLATELET COUNT (AUTO) 424.0 K/uL (130-400); RED BLOOD CELL COUNT(AUTO) 3.16 MIL/uL (4.00-5.50); RED CELL DISTRIBUTION WIDTH 14.3 % (11.0-15.5); WHITE BLOOD COUNT (AUTO) 6.8 K/uL (4.8-10.8)
[2025-04-07 04:40] LABS: ASPARTATE AMINOTRANSFERASE 55.0 U/L (10-37); CREATININE 0.6 mg/dL (0.5-1.0); GLOMERULAR FILTR. RATE CALC 89.0 mL/min (>90); GLUCOSE,RANDOM 62.0 mg/dL (70-105); SODIUM SERUM 135.0 mmol/L (136-145); TOTAL PROTEIN, SERUM 6.4 g/dL (6.0-8.3); UREA NITROGEN, BLOOD 17.0 mg/dL (7-18)
--- NOTE | 2025-04-07 12:34 | PN ---
[facility] PROGRESS NOTE Date of Service: Apr 07, 2025 Time of Service: 12:23 SUBJECTIVE: This is an 85-year-old female, a resident of [facility] with past medical history of Dementia, Hypertension, constipation, anxiety, insomnia ,diverticulosis , anemia and PEG tube placement on 03/12/2025 who was brought to the ED via EMS [facility] due to head [facility] and patient peg tube was also pulled out requiring peg replacement.Daughter was at bedside during my evaluation and states that patient was admitted here last Mar 03 due to nausea,vomiting and diarrhea and patient was not eating anymore and that peg tube was decided to be placed she said and patient was transferred to [facility] for rehab she said.Patient also states that patient has dementia but becomes more confused today because patient got out of bed and walked and eventually fell on the floor hitting her left side of the head ,reason why she is brought here.Patient is also on continuous peg tube feeding at the assisted she said.Daughter also reports patient has chronic diarrhea. Seen and examined patient in the ER awake,alert and following commands.Patient continue to complain of lower abdominal pain.Denies fever, chills, nausea,vomiting,chest pain,palpitation,cough and shortness of breath. Latest vital signs temperature 98.4, heart rate 85, blood pressure 122/60 saturation 96% on room air. Labs: Hemoglobin 8.7, hematocrit 28, platelet count 499 sodium 138, chloride 99, BUN 25, GFR 89 glucose 103 total calcium 9.2. U rinalysis is unremarkable. CT head without contrast result revealed no acute intracranial abnormality. X-ray of the abdomen result revealed percutaneous gastrostomy tube appropriately position with in the gastric body without evidence of contrast extravasation. Abundant colonic fecal matter possibly reflecting constipation. CT abdomen and pelvis without contrast result revealed colonic diverticulosis. A symmetric circumferential wall thickening of the sigmoid colon with mild pericolonic fat stranding likely diverticulitis. There is a communication between the sigmoid colon and the medially placed cecum with loss of fat plane, suggestive of colocolic fistula. No interval changes. Incisional hernia in the anterior abdominal wall with omental fat herniation no interval changes. A few enlarged periumbilical and anterior abdominal wall lymph nodes no interval changes. While in the ER patient received Zosyn IV. As per ER LEAD WEB APPLICATION DEVELOPER ,peg tube was replaced in the ER and while ER staff was performing in and out cath fecal material was obtained on [address] abdomen and pelvis was obtained and revealed colocolic fistula and ER LEAD WEB APPLICATION DEVELOPER consulted Gen surgeon information services manager .Will admit patient for further medical management 04/05 Patient was examined on the bedside. The patient's 2 daughters were with the patient. The history was taken from 1 of the daughters. According to the daughter the [facility] after which she was brought to the hospital. The patient has dementia but was able to answer the questions regarding how she was feeling and pain. The patient complained of pain on her left side of the head on which she fell. As per the daughter, she is planning to move the patient to her home once she has finalized all the arrangements. 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 04/06 Patient was examined on the bedside. The patient's 2 daughters were with the patient. General surgery was consulted yesterday and they recommended no surgical intervention at the time and and to start the PEG tube feed. The patient complained of pain in the lower abdomen therefore a bladder scan was ordered as per the patient's daughter the patient wants to go to the washroom for urination and defecation but she has been told to not ambulate at the time therefore, as per the daughter the patient is holding in her urine and stool. Lactulose was ordered to help with patient's defecation. Patient SNF facility [facility] was consulted to inquire about the patient's PEG tube feed given to her at [facility] so that can be restarted here. Physical therapy is ordered to help patient ambulate 04/07 Patient was examined on the bedside. The patient's 2 daughters were with the patient. The patient was started on her PEG tube feeds yesterday but started vomiting therefore the PEG tube was stopped. She is planned to restart her PEG feed after getting Reglan and Zofran. The patient was complaining of severe pain (03/31) in right lower quadrant pain for which she was started on IV Tylenol. The patient was given 1 dose of lactulose yesterday but was unable to have bowel movement therefore the patient was prescribed Fleet enema. As the patient was unable to pass urine yesterday a bladder scan was performed that showed urinary retention therefore the patient had a Villasenor's in place. Physical therapy tried to work with the patient yesterday but the patient was dizzy because, as per the daughter, the patient had morphine just before physical therapy came. REVIEW OF SYSTEMS CONSTITUTIONAL: Denies fevers, chills, or night sweats. No unintentional weight loss reported. NEUROLOGICAL: Dementia ENT: No hearing loss, otalgia, otorrhea, rhinitis, rhinorrhea, hoarseness, or sore throat. CARDIOVASCULAR: Denies any exertional angina, dyspnea on exertion, orthopnea, paroxysmal nocturnal dyspnea, palpitations, life-threatening arrhythmias, claudication. PULMONARY: Denies any shortness of breath, cough, phlegm/sputum, hemoptysis, pleuritic chest pain. SLEEP: Denies morning headaches, daytime somnolence or napping. Denies difficulty falling asleep, staying asleep, waking from sleep. Denies knowledge of snoring. GASTROINTESTINAL: Denies any type of dysphagia to either liquids or solids. Denies nausea, vomiting, pyrosis, early satiety, abdominal pain, diarrhea, constipation, or changes in stool consistency or caliber. Denies coffee-ground emesis, hematemesis, hematochezia, or melanotic stools. GENITOURINARY: Denies frequency, urgency, nocturia, hematuria or incontinence (Storage/Irritative symptoms.) Low urinary stream, straining to void, urinary intermittency or hesitancy, splitting of the voiding stream, terminal dribbling. ENDOCRINOLOGIC: Denies polyuria, polydipsia, polyphagia or heat/cold intolerances. PHYSICAL EXAM GENERAL APPEARANCE: The patient is awake, alert, and orientedx2, in no acute cardiopulmonary distress. NEUROLOGICAL: Motor is 4/4 in bilateral upper and lower extremities proximal to distal. No sensory deficits. HEENT: Face is symmetric. Pupils are equal and reactive. Extraocular movements are intact. NECK: Supple. No JVD. No thyromegaly. No submental, submandibular, pre- /postauricular, occipital or supraclavicular lymphadenopathy. CHEST: Normal chest expansion. No Telemetry. LUNGS: Absence of any rales, rhonchi or any wheezing. CARDIOVASCULAR: Regular. S1 and S2 normal. No appreciable rubs, murmurs or gallops. ABDOMEN: Abdominal tenderness on bilateral lower quadrant per palpation Soft and nondistended. There is no rebound, voluntary guarding, or rigidity. : Deferred. No Villasenor. EXTREMITIES: Non-edematous and not cyanotic. No clubbing. Good capillary refill. SKIN: left head bump Vital Signs (last 8hr) Date Time Temp Pulse Resp B/P (MAP) Pulse Ox O2 Delivery O2 Flow Rate FiO2 04/07/25 08:20 98.4 69 16 133/61 98 Room Air LABS: Laboratory: Test 04/07/25 03:25 Range/Units White Blood Count 6.8 4.8-10.8 K/uL Red Blood Count 3.16 L 4.00-5.50 MIL/uL Hemoglobin 8.6 L 12.0-16.0 g/dL Hematocrit 28.1 L 36-48 % Mean Corpuscular Volume 88.9 79-99 fL Mean Corpuscular Hemoglobin 27.2 27.0-33.0 pg Mean Corpuscular Hemoglobin Concent 30.6 L 32.0-36.0 g/dL Red Cell Distribution Width 14.3 11.0-15.5 % Platelet Count 424 H 130-400 K/uL Mean Platelet Volume 10.0 7.5-10.5 fL Nucleated Red Blood Cells 0.0 0.0-0.19 % Sodium Level 135 L 136-145 mmol/L Potassium Level 3.5 3.5-5.1 mmol/L Chloride Level 100 L 101-111 mmol/L Carbon Dioxide Level 26 21-32 mmol/L Blood Urea Nitrogen 17 7-18 mg/dL Creatinine 0.6 0.5-1.0 mg/dL Glomerular Filtration Rate Calc 89 >90 mL/min Random Glucose 62 L 70-105 mg/dL Total Calcium 8.4 L 8.5-10.1 mg/dL Total Bilirubin 0.7 # 0.2-1.0 mg/dL Aspartate Amino Transf (AST/SGOT) 55 H 10-37 U/L Alanine Aminotransferase (ALT/SGPT) 39 # 12-78 U/L Alkaline Phosphatase 185 #H 50-136 U/L Total Protein 6.4 6.0-8.3 g/dL Albumin 2.2 L 3.5-5.0 g/dL Current Medications Medications (Trade) Dose Ordered Sig/Sharona Route PRN Reason Start Time Stop Time Status Last Admin Dose Admin Acetaminophen (TYLenol 325MG TAB) 650 mg Q4H PRN PO TEMPERATURE GREATER THAN 101.5 04/05/25 11:00 05/05/25 10:59 Acetaminophen (TYLenol 325MG TAB) 650 mg Q6H PRN PO MILD PAIN (1-3) 04/05/25 11:00 05/05/25 10:59 04/06/25 16:25 650 MG Acetaminophen (acetaMINOPHEN 1,000MG/100ML) 1,000 mg Q6H6 IVPB 04/07/25 12:00 05/07/25 11:59 Lactated Ringer's 1,000 ml @ 75 mls/hr [id number] IV 04/04/25 22:00 05/04/25 21:59 04/07/25 05:22 75 MLS/HR Magnesium Sulfate 50 ml @ 0 mls/hr PROTOCOL PRN IV OTHER [SEE ORDER COMMENTS] 04/04/25 22:00 05/04/25 21:59 Metoclopramide HCl (regLAN 5 MG TAB) 5 mg TIDAC PO 04/07/25 11:30 05/07/25 11:29 Morphine Sulfate (morPHINE 4MG SYG) 1 mg Q6H PRN IVP SEVERE PAIN (7-10) 04/05/25 11:00 04/12/25 10:59 04/07/25 09:00 1 MG Ondansetron HCl (zoFRAN 4MG INJ) 4 mg Q6H PRN IV NAUSEA/VOMITING 04/04/25 22:00 05/04/25 21:59 04/06/25 20:53 4 MG Pantoprazole Sodium (PROTonix 40MG INJ) 40 mg DAILY IVP 04/05/25 09:00 05/05/25 08:59 04/07/25 09:00 40 MG Piperacillin Sod/ Tazobactam Sod (Zosyn 3.375gm+NS 50ml) 3.375 gm Q8H IVPB 04/05/25 05:00 04/15/25 04:59 04/07/25 05:21 3.375 GM Potassium Chloride 100 ml @ 50 mls/hr AD PRN IV POTASSIUM PROTOCOL 04/04/25 22:00 05/04/25 21:59 Sodium Chloride (NS 50ml) 50 ml AD IV 04/05/25 09:00 04/04/25 23:11 DC DIAGNOSTICS / RADIOLOGY: [ ] ASSESSMENT: Colocolic fistula POA Closed head injury POA S/P Fall injury at the assisted POA Chronic anemia POA Acute thrombocytosis POA Failure to thrive POA S/P peg tube replacement in ER POA Debility POA Dementia POA Hypertension POA Constipation POA Acute on chronic diverticulitis POA PLAN: Closed head injury ,S/P Fall injury at the assisted CT scan head was negative for any acute intracranial abnormality Blood pressure today is 111/66 Patient is on LR @ 75ml/hr For pain she is on morphine sulfate and acetaminophen p.r.n. Because of right lower quadrant pain, the patient was started on IV Tylenol. Abdominal x-ray ordered. Awaiting report. Colocolic fistula CT scan of the abdomen showed communication between the sigmoid colon and the immediately placed cecum with loss of fat plane which is suggestive of colocolic fistula. General Surgery is consulted. They recommended no surgical intervention at the time and and to start the PEG tube feed. General surgery signed off on the case. Consulted SN[facility] to inquire about patients PEG tube feed Restart on PEG tube feed after Reglan and Zofran, as patient vomited after restarting PEG tube feed yesterday. Ordered lactulose for constipation which did not help in bowel movement. Ordered Fleet enema today Bladder scan for lower abdominal pain showed urinary retention. Villasenor is in place. PT ordered for ambulation Patient is on Protonix 40 mg OD Started on Zosyn - day 3 Chronic anemia Hemoglobin today is 8.6 Monitor H&H ATTESTATION BY PHYSICIAN I have seen and examined the patient. I reviewed the documentation, medical decision making, and treatment plan as noted by the resident physician above. I agree with the findings and plan of care. CORTEZ CHRISTOPHER MD, SYED M MD Apr 07, 2025 12:34
[2025-04-08] VITALS (7 sets, daily range): BP systolic 109–134; BP diastolic 56–65; PULSE 63–71; RESP 16–18; TEMP 97.5–98.2; O2SAT 96–98
[2025-04-08 04:36] LABS: NUCLEATED RED BLOOD CELLS 0.0 % (0.0-0.19); PLATELET COUNT (AUTO) 381.0 K/uL (130-400); RED BLOOD CELL COUNT(AUTO) 2.96 MIL/uL (4.00-5.50); RED CELL DISTRIBUTION WIDTH 14.3 % (11.0-15.5); WHITE BLOOD COUNT (AUTO) 5.5 K/uL (4.8-10.8)
[2025-04-08 04:55] LABS: ASPARTATE AMINOTRANSFERASE 23.0 U/L (10-37); CREATININE 0.5 mg/dL (0.5-1.0); GLOMERULAR FILTR. RATE CALC 93.0 mL/min (>90); GLUCOSE,RANDOM 84.0 mg/dL (70-105); SODIUM SERUM 140.0 mmol/L (136-145); TOTAL PROTEIN, SERUM 5.9 g/dL (6.0-8.3); UREA NITROGEN, BLOOD 13.0 mg/dL (7-18)
--- NOTE | 2025-04-08 11:24 | NUR ---
FEEDINGS JEVITY 1.5 RATE CHANGED TO 30ML/HR ; PATIENT TOLERATING FEEDINGS; DENIES DISCOMFORT.
--- NOTE | 2025-04-08 11:49 | HMCIMG ---
ABD 1VW REASON: sbo FINDINGS: Single image of the abdomen was obtained. Nonspecific gas pattern of small bowel. There is colonic distended air-filled with Gastrografin from prior study in the right colon and hepatic flecture.. There is fecal impaction seen in the rectal vault. Bones and soft tissues appear unremarkable. There are no abnormal calcifications. There are surgical clips in the right upper quadrant from prior cholecystectomy. There is atherosclerotic change of the abdominal aorta with calcified plaque. There is no evidence of foreign body. There is osteopenia of the osseous structure. IMPRESSION: 1. Colonic distended with air-filled with fecal impaction seen in the rectal vault..
--- NOTE | 2025-04-08 16:17 | PN ---
[facility] PROGRESS NOTE Date of Service: Apr 08, 2025 Time of Service: 16:09 SUBJECTIVE: This is an 85-year-old female, a resident of [facility] with past medical history of Dementia, Hypertension, constipation, anxiety, insomnia ,diverticulosis , anemia and PEG tube placement on 03/12/2025 who was brought to the ED via EMS coming from an [facility] due to head injury and patient peg tube was also pulled out requiring peg replacement.Daughter was at bedside during my evaluation and states that patient was admitted here last Mar 03 due to nausea,vomiting and diarrhea and patient was not eating anymore and that peg tube was decided to be placed she said and patient was transferred to [facility] for rehab she said.Patient also states that patient has dementia but becomes more confused today because patient got out of bed and walked and eventually fell on the floor hitting her left side of the head ,reason why she is brought here.Patient is also on continuous peg tube feeding at the shelter she said.Daughter also reports patient has chronic diarrhea. Seen and examined patient in the ER awake,alert and following commands.Patient continue to complain of lower abdominal pain.Denies fever, chills, nausea,vomiting,chest pain,palpitation,cough and shortness of breath. Latest vital signs temperature 98.4, heart rate 85, blood pressure 122/60 saturation 96% on room air. Labs: Hemoglobin 8.7, hematocrit 28, platelet count 499 sodium 138, chloride 99, BUN 25, GFR 89 glucose 103 total calcium 9.2. U rinalysis is unremarkable. CT head without contrast result revealed no acute intracranial abnormality. X-ray of the abdomen result revealed percutaneous gastrostomy tube appropriately position with in the gastric body without evidence of contrast extravasation. Abundant colonic fecal matter possibly reflecting constipation. CT abdomen and pelvis without contrast result revealed colonic diverticulosis. A symmetric circumferential wall thickening of the sigmoid colon with mild pericolonic fat stranding likely diverticulitis. There is a communication between the sigmoid colon and the medially placed cecum with loss of fat plane, suggestive of colocolic fistula. No interval changes. Incisional hernia in the anterior abdominal wall with omental fat herniation no interval changes. A few enlarged periumbilical and anterior abdominal wall lymph nodes no interval changes. While in the ER patient received Zosyn IV. 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 The patient's 2 daughters were with the patient. The history was taken from 1 of the daughters. According to the daughter the patient had [facility] after which she was brought to the hospital. The patient has dementia but was able to answer the questions regarding how she was feeling and pain. The patient complained of pain on her left side of the head on which she fell. As per the daughter, she is planning to move the patient to her home once she has finalized all the arrangements. 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 04/06 Patient was examined on the bedside. The patient's 2 daughters were with the patient. General surgery was consulted yesterday and they recommended no surgical intervention at the time and and to start the PEG tube feed. The patient complained of pain in the lower abdomen therefore a bladder scan was ordered as per the patient's daughter the patient wants to go to the washroom for urination and defecation but she has been told to not ambulate at the time therefore, as per the daughter the patient is holding in her urine and stool. Lactulose was ordered to help with patient's defecation. Patient SNF facility [facility] was consulted to inquire about the patient's PEG tube feed given to her at [facility] so that can be restarted here. Physical therapy is ordered to help patient ambulate 04/07 Patient was examined on the bedside. The patient's 2 daughters were with the patient. The patient was started on her PEG tube feeds yesterday but started vomiting therefore the PEG tube was stopped. She is planned to restart her PEG feed after getting Reglan and Zofran. The patient was complaining of severe pain (03/31) in right lower quadrant pain for which she was started on IV Tylenol. The patient was given 1 dose of lactulose yesterday but was unable to have bowel movement therefore the patient was prescribed Fleet enema. As the patient was unable to pass urine yesterday a bladder scan was performed that showed urinary retention therefore the patient had a Villasenor's in place. Physical therapy tried to work with the patient yesterday but the patient was dizzy because, as per the daughter, the patient had morphine just before physical therapy came. 04/08/25: Patient was examined in room 402, Patient's family friend was present in the room. Patient was started on PEG tube feeding and the feed was 25 ml t nain and is scheduled for another feed today. She doesn't complain of any pain, nausea and vomiting today. Patient reports she passed stools twice last night. Foleys was in place and the output was 75ml. REVIEW OF SYSTEMS CONSTITUTIONAL: Denies fevers, chills, or night sweats. No unintentional weight loss reported. NEUROLOGICAL: Dementia ENT: No hearing loss, otalgia, otorrhea, rhinitis, rhinorrhea, hoarseness, or sore throat. CARDIOVASCULAR: Denies any exertional angina, dyspnea on exertion, orthopnea, paroxysmal nocturnal dyspnea, palpitations, life-threatening arrhythmias, claudication. PULMONARY: Denies any shortness of breath, cough, phlegm/sputum, hemoptysis, pleuritic chest pain. SLEEP: Denies morning headaches, daytime somnolence or napping. Denies difficulty falling asleep, staying asleep, waking from sleep. Denies knowledge of snoring. GASTROINTESTINAL: Denies any type of dysphagia to either liquids or solids. Denies nausea, vomiting, pyrosis, early satiety, abdominal pain, diarrhea, constipation, or changes in stool consistency or caliber. Denies coffee-ground emesis, hematemesis, hematochezia, or melanotic stools. GENITOURINARY: Denies frequency, urgency, nocturia, hematuria or incontinence (Storage/Irritative symptoms.) Low urinary stream, straining to void, urinary intermittency or hesitancy, splitting of the voiding stream, terminal dribbling. ENDOCRINOLOGIC: Denies polyuria, polydipsia, polyphagia or heat/cold intolerances. PHYSICAL EXAM GENERAL APPEARANCE: The patient is awake, alert, and orientedx2, in no acute cardiopulmonary distress. NEUROLOGICAL: Motor is 4/4 in bilateral upper and lower extremities proximal to distal. No sensory deficits. HEENT: Face is symmetric. Pupils are equal and reactive. Extraocular movements are intact. NECK: Supple. No JVD. No thyromegaly. No submental, submandibular, pre- /postauricular, occipital or supraclavicular lymphadenopathy. CHEST: Normal chest expansion. No Telemetry. LUNGS: Absence of any rales, rhonchi or any wheezing. CARDIOVASCULAR: Regular. S1 and S2 normal. No appreciable rubs, murmurs or gallops. ABDOMEN: Abdominal tenderness on bilateral lower quadrant per palpation Soft and nondistended. There is no rebound, voluntary guarding, or rigidity. : Deferred. No Villasenor. EXTREMITIES: Non-edematous and not cyanotic. No clubbing. Good capillary refill. SKIN: left head bump Vital Signs (last 8hr) Date Time Temp Pulse Resp B/P (MAP) Pulse Ox O2 Delivery O2 Flow Rate FiO2 04/08/25 12:00 97.5 68 16 125/62 97 Room Air 21 LABS: Laboratory: Test 04/08/25 04:28 Range/Units White Blood Count 5.5 4.8-10.8 K/uL Red Blood Count 2.96 L 4.00-5.50 MIL/uL Hemoglobin 8.1 L 12.0-16.0 g/dL Hematocrit 24.6 L 36-48 % Mean Corpuscular Volume 83.1 79-99 fL Mean Corpuscular Hemoglobin 27.4 27.0-33.0 pg Mean Corpuscular Hemoglobin Concent 32.9 32.0-36.0 g/dL Red Cell Distribution Width 14.3 11.0-15.5 % Platelet Count 381 130-400 K/uL Mean Platelet Volume 9.8 7.5-10.5 fL Nucleated Red Blood Cells 0.0 0.0-0.19 % Sodium Level 140 136-145 mmol/L Potassium Level 3.3 L 3.5-5.1 mmol/L Chloride Level 101 101-111 mmol/L Carbon Dioxide Level 26 21-32 mmol/L Blood Urea Nitrogen 13 7-18 mg/dL Creatinine 0.5 0.5-1.0 mg/dL Glomerular Filtration Rate Calc 93 >90 mL/min Random Glucose 84 70-105 mg/dL Total Calcium 8.4 L 8.5-10.1 mg/dL Total Bilirubin 0.5 0.2-1.0 mg/dL Aspartate Amino Transf (AST/SGOT) 23 10-37 U/L Alanine Aminotransferase (ALT/SGPT) 27 12-78 U/L Alkaline Phosphatase 136 50-136 U/L Total Protein 5.9 L 6.0-8.3 g/dL Albumin 2.1 L 3.5-5.0 g/dL Current Medications Medications (Trade) Dose Ordered Sig/Sharona Route PRN Reason Start Time Stop Time Status Last Admin Dose Admin Acetaminophen (TYLenol 325MG TAB) 650 mg Q4H PRN PO TEMPERATURE GREATER THAN 101.5 04/05/25 11:00 05/05/25 10:59 Acetaminophen (TYLenol 325MG TAB) 650 mg Q6H PRN PO MILD PAIN (1-3) 04/05/25 11:00 05/05/25 10:59 04/06/25 16:25 650 MG Acetaminophen (acetaMINOPHEN 1,000MG/100ML) 1,000 mg Q6H6 IVPB 04/07/25 12:00 05/07/25 11:59 04/08/25 12:26 1,000 MG Lactated Ringer's 1,000 ml @ 75 mls/hr [id number] IV 04/04/25 22:00 05/04/25 21:59 04/08/25 03:32 75 MLS/HR Magnesium Sulfate 50 ml @ 0 mls/hr PROTOCOL PRN IV OTHER [SEE ORDER COMMENTS] 04/04/25 22:00 05/04/25 21:59 Metoclopramide HCl (regLAN 10MG IV) 5 mg TIDAC IVP 04/07/25 13:45 05/07/25 13:44 04/08/25 12:26 5 MG Metoclopramide HCl (regLAN 5 MG TAB) 5 mg TIDAC PO 04/07/25 11:30 04/07/25 13:20 DC Morphine Sulfate (morPHINE 4MG SYG) 1 mg Q6H PRN IVP SEVERE PAIN (7-10) 04/05/25 11:00 04/12/25 10:59 04/08/25 06:23 1 MG Ondansetron HCl (zoFRAN 4MG INJ) 4 mg Q6H PRN IV NAUSEA/VOMITING 04/04/25 22:00 05/04/25 21:59 04/07/25 13:21 4 MG Pantoprazole Sodium (PROTonix 40MG INJ) 40 mg DAILY IVP 04/05/25 09:00 05/05/25 08:59 04/08/25 09:22 40 MG Piperacillin Sod/ Tazobactam Sod (Zosyn 3.375gm+NS 50ml) 3.375 gm Q8H IVPB 04/05/25 05:00 04/15/25 04:59 04/08/25 13:55 3.375 GM Potassium Chloride 100 ml @ 50 mls/hr AD PRN IV POTASSIUM PROTOCOL 04/04/25 22:00 05/04/25 21:59 04/08/25 09:34 50 MLS/HR Sodium Chloride (NS 50ml) 50 ml AD IV 04/05/25 09:00 04/04/25 23:11 DC DIAGNOSTICS / RADIOLOGY: [place] [address] [place] [address] IMAGING REPORT Signed PATIENT: MODESTA CHAND MR#: [id number] : 1940 SEX: F AGE: 85 LOCATION: 4AH ORDER 04 STATUS: ADM IN REPORT#: [id number] SERVICE 04 REASON: sbo ORDERING PHYSICIAN: MARC EISENBERG Jr. PAC PROCEDURE: ABD 1VW - ABD 1VW ABD 1VW REASON: sbo FINDINGS: Single image of the abdomen was obtained. Nonspecific gas pattern of small bowel. There is colonic distended air-filled with Gastrografin from prior study in the right colon and hepatic flecture.. There is fecal impaction seen in the rectal vault. Bones and soft tissues appear unremarkable. There are no abnormal calcifications. There are surgical clips in the right upper quadrant from prior cholecystectomy. There is atherosclerotic change of the abdominal aorta with calcified plaque. There is no evidence of foreign body. There is osteopenia of the osseous structure. IMPRESSION: 1. Colonic distended with air-filled with fecal impaction seen in the rectal vault.. DICTATED BY: DENIS REEVES MD DATE: 04/08/25 114 ELECTRONICALLY SIGNED BY: DENIS REEVES MD DATE: 04/08/25 1146 ASSESSMENT: Colocolic fistula POA Closed head injury POA S/P Fall injury at the shelter POA Chronic anemia POA Acute thrombocytosis POA Failure to thrive POA S/P peg tube replacement in ER POA Debility POA Dementia POA Hypertension POA Constipation POA Acute on chronic diverticulitis POA PLAN: Closed head injury ,S/P Fall injury at the shelter CT scan head was negative for any acute intracranial abnormality Blood pressure today is 125/62 Patient is on LR @ 75ml/hr For pain she is on morphine sulfate and acetaminophen p.r.n. Because of right lower quadrant pain, the patient was started on IV Tylenol. Abdominal x-ray ordered. Results show Colonic distended with air-filled with fecal impaction seen in rectal vault. Colocolic fistula CT scan of the abdomen showed communication between the sigmoid colon and the immediately placed cecum with loss of fat plane which is suggestive of colocolic fistula. General Surgery is consulted. They recommended no surgical intervention at the time and and to start the PEG tube feed. General surgery signed off on the case. Consulted SNF [facility] to inquire about patients PEG tube feed Restart on PEG tube feed after Reglan and Zofran, as patient vomited after restarting PEG tube feed yesterday. PEG tube was started and 25ml of feed was given. Ordered lactulose for constipation which did not help in bowel movement. Ordered Fleet enema(04/07/25), Patient passed stool twice on 04/07/25 night. Bladder scan for lower abdominal pain showed urinary retention. Villasenor is in place with output of 75ml today (04/08/25). PT ordered for ambulation Patient is on Protonix 40 mg OD Started on Zosyn - day 4 Chronic anemia Hemoglobin today is 8.1 Will Monitor H&H ATTESTATION BY PHYSICIAN I have seen and examined the patient. I reviewed the documentation, medical decision making, and treatment plan as noted by the resident physician above. I agree with the findings and plan of care. CORTEZ CHRISTOPHER MD, SHAJI MD Apr 08, 2025 16:17
[2025-04-09] VITALS (8 sets, daily range): BP systolic 103–144; BP diastolic 54–71; PULSE 65–75; RESP 15–20; TEMP 97.2–97.9; O2SAT 96–98
--- NOTE | 2025-04-09 01:50 | NUR ---
KUB RESULTS BUNDLER SEASONAL [employer] SURGEON PAGED TO RELAY RESULTS. PENDING CALL BACK
--- NOTE | 2025-04-09 01:56 | NUR ---
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 ANSWERING SERVICE CALLED AGAIN, GOING TO PAGE DR STOUT
--- NOTE | 2025-04-09 02:06 | NUR ---
KUB RESULT DR GALARZA PAGED TWICE NO ANSWER. MAILBOXES BOTH FULL
--- NOTE | 2025-04-09 02:08 | NUR ---
KUB RESULT DR GALARZA GIVEN RESULT OF KUB DONE ON 04/06 AT 1554. RESULT CALLED FROM [place]. NO NEW ORDERS GIVEN.
[2025-04-09 03:43] LABS: IMMATURE GRANULOCYTE ABSOLUTE 0.02 K/uL (0-1); NUCLEATED RED BLOOD CELLS 0.0 % (0.0-0.19); PLATELET COUNT (AUTO) 374 K/uL (130-400); RED BLOOD CELL COUNT(AUTO) 2.91 MIL/uL (4.00-5.50); RED CELL DISTRIBUTION WIDTH 14.6 % (11.0-15.5); WHITE BLOOD COUNT (AUTO) 6.3 K/uL (4.8-10.8)
[2025-04-09 04:22] LABS: CREATININE 0.6 mg/dL (0.5-1.0); GLOMERULAR FILTR. RATE CALC 89.0 mL/min (>90); GLUCOSE,RANDOM 130.0 mg/dL (70-105); SODIUM SERUM 136.0 mmol/L (136-145); UREA NITROGEN, BLOOD 15.0 mg/dL (7-18)
--- NOTE | 2025-04-09 10:16 | PN ---
This is a 85-year-old reconsulted to surgery for concerning imaging Interval history: This 85-year-old female seen in her room resting Images from the 16th to proceed with the concerning findings with potential perforation developing Since imaging patient has had multiple bowel movements no abdominal distention and soft abdomen Patient reporting no discomfort and has been on diet tolerating well Repeat KUB performed this morning Physical exam General: Awake alert and oriented Heart: Regular rate and rhythm} Lungs: Clear to auscultation no distress Abdomen: [Soft, nontender, nondistended Assessment : This is a 85-year-old female with a history of colon colonic fistula with constipation on initial admission that appears to have resolved Plan: Await KUB findings Continue with diet Nursing to report findings once complete Dr. Sanderson to be updated in patient's status Surgical case has been discussed with my supervising physician in the above plan was formulated and agreed upon We appreciate the hospitalist team for us to participate in patient's care. Greater than 45 minutes of time spent patient, reviewing chart, working on documentation Vitals/Labs Vital Signs Date Time Temp Pulse Resp B/P (MAP) Pulse Ox O2 Delivery O2 Flow Rate FiO2 04/09/25 07:48 97.9 67 18 103/54 99 Room Air 04/08/25 20:10 0 21 Laboratory Tests 04/09/25 03:16 Medications Current Medications Diatrizoate Meglum/ Diatrizoate Sod 30 ml STK-MED ONCE .ROUTE; Start 04/04/25 at 18:19; Stop 04/04/25 at 18:19; Status DC Piperacillin Sod/ Tazobactam Sod 3.375 gm ONCE ONCE IV Last administered on 04/04/25at 22:29; Start 04/04/25 at 21:00; Stop 04/04/25 at 21:01; Status DC Sodium Chloride 1,428 ml @ 100 mls/hr ONCE ONCE IV Last administered on 04/04/25at 22:29; Start 04/04/25 at 21:00; Stop 04/05/25 at 11:16; Status DC Ondansetron HCl 4 mg Q6H PRN IV Last administered on 04/07/25at 13:21; Start 04/04/25 at 22:00; Stop 05/04/25 at 21:59 Lactated Ringer's 1,000 ml @ 75 mls/hr [id number] IV Last administered on 04/08/25at 03:32; Start 04/04/25 at 22:00; Stop 05/04/25 at 21:59 Magnesium Sulfate 50 ml @ 0 mls/hr PROTOCOL PRN IV; Start 04/04/25 at 22:00; Stop 05/04/25 at 21:59 Potassium Chloride 100 ml @ 50 mls/hr AD PRN IV Last administered on 04/08/25at 18:48; Start 04/04/25 at 22:00; Stop 05/04/25 at 21:59 Piperacillin Sod/ Tazobactam Sod 3.375 gm Q8H IVPB Last administered on 04/09/25at 06:35; Start 04/05/25 at 05:00; Stop 04/15/25 at 04:59 Sodium Chloride 50 ml AD IV; Start 04/05/25 at 09:00; Stop 04/04/25 at 23:11; Status DC Pantoprazole Sodium 40 mg DAILY IVP Last administered on 04/08/25at 09:22; Start 04/05/25 at 09:00; Stop 05/05/25 at 08:59 Acetaminophen 650 mg Q6H PRN PO Last administered on 04/06/25at 16:25; Start 04/05/25 at 11:00; Stop 05/05/25 at 10:59 Acetaminophen 650 mg Q4H PRN PO; Start 04/05/25 at 11:00; Stop 05/05/25 at 10:59 Morphine Sulfate 1 mg Q6H PRN IVP Last administered on 04/08/25at 06:23; Start 04/05/25 at 11:00; Stop 04/12/25 at 10:59 Lactulose 20 gm ONCE ONCE PO Last administered on 04/06/25at 11:06; Start 04/06/25 at 11:00; Stop 04/06/25 at 11:01; Status DC Acetaminophen 1,000 mg Q6H6 IVPB Last administered on 04/09/25at 05:31; Start 04/07/25 at 12:00; Stop 05/07/25 at 11:59 Metoclopramide HCl 5 mg TIDAC PO; Start 04/07/25 at 11:30; Stop 04/07/25 at 13:20; Status DC Metoclopramide HCl 5 mg TIDAC IVP Last administered on 04/09/25at 06:36; Start 04/07/25 at 13:45; Stop 05/07/25 at 13:44 Lisinopril 20 mg DAILY PO; Start 04/09/25 at 09:00; Stop 05/09/25 at 08:59 Clonazepam 0.5 mg BID PO Last administered on 04/08/25at 20:12; Start 04/08/25 at 21:00; Stop 05/08/25 at 20:59 Memantine 10 mg DAILY PO; Start 04/09/25 at 09:00; Stop 05/09/25 at 08:59 MARC EISENBERG Jr. PAC Apr 09, 2025 10:16
--- NOTE | 2025-04-09 10:29 | PN ---
[facility] PROGRESS NOTE Date of Service: Apr 09, 2025 Time of Service: 10:18 SUBJECTIVE: This is an 85-year-old female, a resident of [facility] with past medical history of Dementia, Hypertension, constipation, anxiety, insomnia ,diverticulosis , anemia and PEG tube placement on 03/12/2025 who was brought to the ED via EMS coming from an [facility] due to head injury and patient peg tube was also pulled out requiring peg replacement.Daughter was at bedside during my evaluation and states that patient was admitted here last Mar 03 due to nausea,vomiting and diarrhea and patient was not eating anymore and that peg tube was decided to be placed she said and patient was transferred to [facility] for rehab she said.Patient also states that patient has dementia but becomes more confused today because patient got out of bed and walked and eventually fell on the floor hitting her left side of the head ,reason why she is brought here.[facility] she said.Daughter also reports patient has chronic diarrhea. Seen and examined patient in the ER awake,alert and following commands.Patient continue to complain of lower abdominal pain.Denies fever, chills, nausea,vomiting,chest pain,palpitation,cough and shortness of breath. Latest vital signs temperature 98.4, heart rate 85, blood pressure 122/60 saturation 96% on room air. Labs: Hemoglobin 8.7, hematocrit 28, platelet count 499 sodium 138, chloride 99, BUN 25, GFR 89 glucose 103 total calcium 9.2. U rinalysis is unremarkable. CT head without contrast result revealed no acute intracranial abnormality. X-ray of the abdomen result revealed percutaneous gastrostomy tube appropriately position with in the gastric body without evidence of contrast extravasation. Abundant colonic fecal matter possibly reflecting constipation. CT abdomen and pelvis without contrast result revealed colonic diverticulosis. A symmetric circumferential wall thickening of the sigmoid colon with mild pericolonic fat stranding likely diverticulitis. There is a communication between the sigmoid colon and the medially placed cecum with loss of fat plane, suggestive of colocolic fistula. No interval changes. Incisional hernia in the anterior abdominal wall with omental fat herniation no interval changes. A few enlarged periumbilical and anterior abdominal wall lymph nodes no interval changes. While in the ER patient received Zosyn IV. As per ER [employer] ,peg tube was replaced in the ER and while ER staff was performing in and out cath fecal material was obtained on [address] abdomen and pelvis was obtained and revealed colocolic fistula and ER [employer] consulted Gen surgeon control supervisor .Will admit patient for further medical management 04/05 Patient was examined on the bedside. The patient's 2 daughters were with the patient. The history was taken from 1 of the daughters. According to the daughter the patient had a fall [facility] after which she was brought to the hospital. The patient has dementia but was able to answer the questions regarding how she was feeling and pain. The patient complained of pain on her left side of the head on which she fell. As per the daughter, she is planning to move the patient to her home once she has finalized all the arrangements. 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 04/06 Patient was examined on the bedside. The patient's 2 daughters were with the patient. General surgery was consulted yesterday and they recommended no surgical intervention at the time and and to start the PEG tube feed. The patient complained of pain in the lower abdomen therefore a bladder scan was ordered as per the patient's daughter the patient wants to go to the washroom for urination and defecation but she has been told to not ambulate at the time therefore, as per the daughter the patient is holding in her urine and stool. Lactulose was ordered to help with patient's defecation. Patient SNF facility [facility] was consulted to inquire about the patient's PEG tube feed given to her at [facility] so that can be restarted here. Physical therapy is ordered to help patient ambulate 04/07 Patient was examined on the bedside. The patient's 2 daughters were with the patient. The patient was started on her PEG tube feeds yesterday but started vomiting therefore the PEG tube was stopped. She is planned to restart her PEG feed after getting Reglan and Zofran. The patient was complaining of severe pain (03/31) in right lower quadrant pain for which she was started on IV Tylenol. The patient was given 1 dose of lactulose yesterday but was unable to have bowel movement therefore the patient was prescribed Fleet enema. As the patient was unable to pass urine yesterday a bladder scan was performed that showed urinary retention therefore the patient had a Villasenor's in place. Physical therapy tried to work with the patient yesterday but the patient was dizzy because, as per the daughter, the patient had morphine just before physical therapy came. 04/08/25: Patient was examined in room 402, Patient's family friend was present in the room. Patient was started on PEG tube feeding and the feed was 25 ml t nain and is scheduled for another feed today. She doesn't complain of any pain, nausea and vomiting today. Patient reports she passed stools twice last night. Foleys was in place and the output was 75ml. 04/09 The patient was examined in the room but the patient was sleeping, her daughter was at her bedside. As per the nurse, patient's initial abdominal x-ray report showed colonic distended with air-filled with fecal impaction seen in the rectal vault. But later at, Radiology updated the report and reported large bowel obstruction with transition point at the descending-sigmoid junction. Cecal dilation to 9 cm, at risk for perforation. They recommended CT abdomen for further evaluation. They also reported dilated descending colon measuring 6.8 cm in diameter, medially positioned cecum, no evidence of free air or pathological calcification, and no acute osseous abnormality. Due to the updated findings Dr. Sanderson was contacted at night but did not order anything. Dr. Sanderson was contacted again in the morning and ordered a repeat abdominal x-ray. As per the daughter, the patient have had 4 bowel movements since yesterday and is not complaining of pain.. REVIEW OF SYSTEMS CONSTITUTIONAL: Denies fevers, chills, or night sweats. No unintentional weight loss reported. NEUROLOGICAL: Dementia ENT: No hearing loss, otalgia, otorrhea, rhinitis, rhinorrhea, hoarseness, or sore throat. CARDIOVASCULAR: Denies any exertional angina, dyspnea on exertion, orthopnea, paroxysmal nocturnal dyspnea, palpitations, life-threatening arrhythmias, claudication. PULMONARY: Denies any shortness of breath, cough, phlegm/sputum, hemoptysis, pleuritic chest pain. SLEEP: Denies morning headaches, daytime somnolence or napping. Denies difficulty falling asleep, staying asleep, waking from sleep. Denies knowledge of snoring. GASTROINTESTINAL: Denies any type of dysphagia to either liquids or solids. Denies nausea, vomiting, pyrosis, early satiety, abdominal pain, diarrhea, constipation, or changes in stool consistency or caliber. Denies coffee-ground emesis, hematemesis, hematochezia, or melanotic stools. GENITOURINARY: Denies frequency, urgency, nocturia, hematuria or incontinence (Storage/Irritative symptoms.) Low urinary stream, straining to void, urinary intermittency or hesitancy, splitting of the voiding stream, terminal dribbling. ENDOCRINOLOGIC: Denies polyuria, polydipsia, polyphagia or heat/cold intolerances. PHYSICAL EXAM GENERAL APPEARANCE: The patient is awake, alert, and orientedx2, in no acute c ardiopulmonary distress. NEUROLOGICAL: Motor is 4/4 in bilateral upper and lower extremities proximal to distal. No sensory deficits. HEENT: Face is symmetric. Pupils are equal and reactive. Extraocular movements are intact. NECK: Supple. No JVD. No thyromegaly. No submental, submandibular, pre- /postauricular, occipital or supraclavicular lymphadenopathy. CHEST: Normal chest expansion. No Telemetry. LUNGS: Absence of any rales, rhonchi or any wheezing. CARDIOVASCULAR: Regular. S1 and S2 normal. No appreciable rubs, murmurs or gallops. ABDOMEN: Abdominal tenderness on bilateral lower quadrant per palpation Soft and nondistended. There is no rebound, voluntary guarding, or rigidity. : Villasenor in place. EXTREMITIES: Non-edematous and not cyanotic. No clubbing. Good capillary refill. SKIN: left head bump Vital Signs (last 8hr) Date Time Temp Pulse Resp B/P (MAP) Pulse Ox O2 Delivery O2 Flow Rate FiO2 04/09/25 07:48 97.9 67 18 103/54 99 Room Air 04/09/25 04:03 97.9 68 18 120/67 100 Room Air LABS: Laboratory: Test 04/09/25 03:16 04/08/25 04:28 Range/Units White Blood Count 6.3 4.8-10.8 K/uL Red Blood Count 2.91 L 4.00-5.50 MIL/uL Hemoglobin 8.0 L 12.0-16.0 g/dL Hematocrit 25.3 L 36-48 % Mean Corpuscular Volume 86.9 79-99 fL Mean Corpuscular Hemoglobin 27.5 27.0-33.0 pg Mean Corpuscular Hemoglobin Concent 31.6 L 32.0-36.0 g/dL Red Cell Distribution Width 14.6 11.0-15.5 % Platelet Count 374 130-400 K/uL Mean Platelet Volume 10.1 7.5-10.5 fL Immature Granulocyte % (Auto) 0.3 0-1 % Neutrophils (%) (Auto) 58.2 40.0-77.0 % Lymphocytes (%) (Auto) 24.2 21.0-51.0 % Monocytes (%) (Auto) 14.7 H 3.0-13.0 % Eosinophils (%) (Auto) 2.1 0.0-8.0 % Basophils (%) (Auto) 0.5 0.0-5.0 % Neutrophils # (Auto) 3.7 1.8-7.7 K/uL Lymphocytes # (Auto) 1.5 1.0-4.8 K/uL Monocytes # (Auto) 0.9 0.1-1.0 K/uL Eosinophils # (Auto) 0.13 0.00-0.70 K/uL Basophils # (Auto) 0.03 0.00-0.20 K/uL Absolute Immature Granulocyte (auto 0.02 0-1 K/uL Nucleated Red Blood Cells 0.0 0.0-0.19 % Sodium Level 136 136-145 mmol/L Potassium Level 3.9 3.5-5.1 mmol/L Chloride Level 103 101-111 mmol/L Carbon Dioxide Level 28 21-32 mmol/L Blood Urea Nitrogen 15 7-18 mg/dL Creatinine 0.6 0.5-1.0 mg/dL Glomerular Filtration Rate Calc 89 >90 mL/min Random Glucose 130 #H 70-105 mg/dL Total Calcium 7.8 L 8.5-10.1 mg/dL Ammonia 29 11-32 umol/L Vitamin B12 Level 600 193-986 pg/mL Thyroid Stimulating Hormone (TSH) 9.51 #H 0.36-3.74 uIU/mL Total Bilirubin 0.5 0.2-1.0 mg/dL Aspartate Amino Transf (AST/SGOT) 23 10-37 U/L Alanine Aminotransferase (ALT/SGPT) 27 12-78 U/L Alkaline Phosphatase 136 50-136 U/L Total Protein 5.9 L 6.0-8.3 g/dL Albumin 2.1 L 3.5-5.0 g/dL Current Medications Medications (Trade) Dose Ordered Sig/Sharona Route PRN Reason Start Time Stop Time Status Last Admin Dose Admin Acetaminophen (TYLenol 325MG TAB) 650 mg Q4H PRN PO TEMPERATURE GREATER THAN 101.5 04/05/25 11:00 05/05/25 10:59 Acetaminophen (TYLenol 325MG TAB) 650 mg Q6H PRN PO MILD PAIN (1-3) 04/05/25 11:00 05/05/25 10:59 04/06/25 16:25 650 MG Acetaminophen (acetaMINOPHEN 1,000MG/100ML) 1,000 mg Q6H6 IVPB 04/07/25 12:00 05/07/25 11:59 04/09/25 05:31 1,000 MG Clonazepam (clonazePAM 0.5 mg) 0.5 mg BID PO 04/08/25 21:00 05/08/25 20:59 04/08/25 20:12 0.5 MG Lactated Ringer's 1,000 ml @ 75 mls/hr [id number] IV 04/04/25 22:00 05/04/25 21:59 04/08/25 03:32 75 MLS/HR Lisinopril (Prinivil 20mg) 20 mg DAILY PO 04/09/25 09:00 05/09/25 08:59 Magnesium Sulfate 50 ml @ 0 mls/hr PROTOCOL PRN IV OTHER [SEE ORDER COMMENTS] 04/04/25 22:00 05/04/25 21:59 Memantine (NAmenDA 5 MG TAB) 10 mg DAILY PO 04/09/25 09:00 05/09/25 08:59 Metoclopramide HCl (regLAN 10MG IV) 5 mg TIDAC IVP 04/07/25 13:45 05/07/25 13:44 04/09/25 06:36 5 MG Metoclopramide HCl (regLAN 5 MG TAB) 5 mg TIDAC PO 04/07/25 11:30 04/07/25 13:20 DC Morphine Sulfate (morPHINE 4MG SYG) 1 mg Q6H PRN IVP SEVERE PAIN (7-10) 04/05/25 11:00 04/12/25 10:59 04/08/25 06:23 1 MG Ondansetron HCl (zoFRAN 4MG INJ) 4 mg Q6H PRN IV NAUSEA/VOMITING 04/04/25 22:00 05/04/25 21:59 04/07/25 13:21 4 MG Pantoprazole Sodium (PROTonix 40MG INJ) 40 mg DAILY IVP 04/05/25 09:00 05/05/25 08:59 04/08/25 09:22 40 MG Piperacillin Sod/ Tazobactam Sod (Zosyn 3.375gm+NS 50ml) 3.375 gm Q8H IVPB 04/05/25 05:00 04/15/25 04:59 04/09/25 06:35 3.375 GM Potassium Chloride 100 ml @ 50 mls/hr AD PRN IV POTASSIUM PROTOCOL 04/04/25 22:00 05/04/25 21:59 04/08/25 18:48 50 MLS/HR Sodium Chloride (NS 50ml) 50 ml AD IV 04/05/25 09:00 04/04/25 23:11 DC DIAGNOSTICS / RADIOLOGY: PATIENT: MODESTA CHAND MR#: [id number] : 1940 SEX: F AGE: 85 LOCATION: 4AH ORDER 150 STATUS: ADM IN REPORT#: [id number] SERVICE 1505 REASON: sbo ORDERING PHYSICIAN: MARC EISENBERG Jr. PAC PROCEDURE: ABD 1VW - ABD 1VW ABD 1VW REASON: sbo FINDINGS: Single image of the abdomen was obtained. Nonspecific gas pattern of small bowel. There is colonic distended air-filled with Gastrografin from prior study in the right colon and hepatic flecture.. There is fecal impaction seen in the rectal vault. Bones and soft tissues appear unremarkable. There are no abnormal calcifications. There are surgical clips in the right upper quadrant from prior cholecystectomy. There is atherosclerotic change of the abdominal aorta with calcified plaque. There is no evidence of foreign body. There is osteopenia of the osseous structure. IMPRESSION: 1. Colonic distended with air-filled with fecal impaction seen in the rectal vault.. DICTATED BY: DENIS REEVES MD DATE: 04/08/25 1145 ELECTRONICALLY SIGNED BY: DENIS REEVES MD DATE: 04/08/25 1149 ASSESSMENT: Colocolic fistula POA Closed head injury POA S/P [facility] POA Chronic anemia POA Acute thrombocytosis POA Failure to thrive POA S/P peg tube replacement in ER POA Debility POA Dementia POA Hypertension POA Constipation POA Acute on chronic diverticulitis POA PLAN: Closed head injury ,S/P Fall [facility] at [facility] scan head was negative for any acute intracranial abnormality Blood pressure today is 125/62 Patient is on LR @ 75ml/hr For pain she is on morphine sulfate and acetaminophen p.r.n. Because of right lower quadrant pain, the patient was started on IV Tylenol. Colocolic fistula CT scan of the abdomen showed communication between the sigmoid colon and the immediately placed cecum with loss of fat plane which is suggestive of colocolic fistula. General Surgery is consulted. They recommended no surgical intervention at the time and and to start the PEG tube feed. General surgery signed off on the case. Consulted SN[facility] to inquire about patients PEG tube feed Restart on PEG tube feed after Reglan and Zofran, as patient vomited after restarting PEG tube feed . PEG tube was started and 25ml of feed was given. Ordered lactulose for constipation which did not help in bowel movement. Ordered Fleet enema(04/07/25), Patient passed stool twice on 04/07/25 night. And had multiple bowel movements since then. Bladder scan for lower abdominal pain showed urinary retention. Villasenor is in place with output of 75ml today (04/08/25). PT ordered for ambulation Patient is on Protonix 40 mg OD Started on Zosyn - day 5 Abdominal x-ray ordered. Results show Colonic distended with air-filled with fecal impaction seen in rectal vault. (04/06/2025) Updated abdominal x-ray report (04/09/2025) showed large bowel obstruction with transition point at the descending-sigmoid junction. Cecal dilation to 9 cm, at risk for perforation. They recommended CT abdomen for further evaluation. They also reported dilated descending colon measuring 6.8 cm in diameter, medially positioned cecum, no evidence of free air or pathological calcification, and no acute osseous abnormality. As per general surgery " images from the th to proceed with the concerning findings with potential perforation developing. Since imaging patient has had multiple bowel movements no abdominal distention and soft abdomen .Patient reporting no discomfort and has been on diet tolerating well" General surgery ordered for repeat abdominal KUB x-ray. Awaiting results She is recommended to continue diet. Chronic anemia Hemoglobin today is 8.0 Will Monitor H&H Hyperthyroidism TSH 9.51 Ordered free T4 ATTESTATION BY PHYSICIAN I have seen and examined the patient. I reviewed the documentation, medical decision making, and treatment plan as noted by the resident physician above. I agree with the findings and plan of care. CORTEZ CHRISTOPHER MD, SYED M MD Apr 09, 2025 10:29
[2025-04-09] MEDS: LISINOPRIL 20 MG TABLET PO SCH (10:56)
--- NOTE | 2025-04-09 11:54 | HMCIMG ---
EXAM: CR Abdomen, 1 View. CLINICAL HISTORY: prio report indicating a blockage COMPARISON: 04/06/2025. FINDINGS: BOWEL: The bowel gas pattern is within normal limits. There is enteric contrast noted to the level of the distal colon. PERITONEUM/SOFT TISSUES: No free air evident. No pathologic appearing calcification. BONES: No acute osseous abnormality. IMPRESSION: No bowel obstruction. Enteric contrast to the level of the distal colon. /[place]
[2025-04-10] VITALS: BP 121/56; PULSE 73; RESP 20; TEMP 98.2
[2025-04-10 04:00] VITALS: BP 109/56; PULSE 81; RESP 20; TEMP 97.9
[2025-04-10 05:04] LABS: NUCLEATED RED BLOOD CELLS 0.0 % (0.0-0.19); PLATELET COUNT (AUTO) 359.0 K/uL (130-400); RED BLOOD CELL COUNT(AUTO) 2.92 MIL/uL (4.00-5.50); RED CELL DISTRIBUTION WIDTH 14.8 % (11.0-15.5); WHITE BLOOD COUNT (AUTO) 6.3 K/uL (4.8-10.8)
[2025-04-10 05:24] LABS: CREATININE 0.5 mg/dL (0.5-1.0); GLOMERULAR FILTR. RATE CALC 93.0 mL/min (>90); GLUCOSE,RANDOM 89.0 mg/dL (70-105); SODIUM SERUM 140.0 mmol/L (136-145); UREA NITROGEN, BLOOD 16.0 mg/dL (7-18)
[2025-04-10 08:00] VITALS: BP 106/65; PULSE 73; RESP 17; TEMP 97.8
[2025-04-10 12:00] VITALS: BP 103/53; PULSE 77; RESP 16; TEMP 98
--- NOTE | 2025-04-10 15:07 | PN ---
CATALY[facility] PROGRESS NOTE Date of Service: Apr 10, 2025 Time of Service: 15:00 SUBJECTIVE: This is an 85-year-old female, a resident of [facility] with past medical history of Dementia, Hypertension, constipation, anxiety, insomnia ,diverticulosis , anemia and PEG tube placement on 03/12/2025 who was brought to the ED via EMS coming from an [facility] due to head injury and patient peg tube was also pulled out requiring peg replacement.Daughter was at bedside during my evaluation and states that patient was admitted here last Mar 03 due to nausea,vomiting and diarrhea and patient was not eating anymore and that peg tube was decided to be placed she said and patient was transferred to [facility] for rehab she said.Patient also states that patient has dementia but becomes more confused today because patient got out of bed and walked and eventually fell on the floor hitting her left side of the head ,reason why she is brought here.Patient is also on continuous peg tube feeding at the senior care she said.Daughter also reports patient has chronic diarrhea. Seen and examined patient in the ER awake,alert and following commands.Patient continue to complain of lower abdominal pain.Denies fever, chills, nausea,vomiting,chest pain,palpitation,cough and shortness of breath. Latest vital signs temperature 98.4, heart rate 85, blood pressure 122/60 saturation 96% on room air. Labs: Hemoglobin 8.7, hematocrit 28, platelet count 499 sodium 138, chloride 99, BUN 25, GFR 89 glucose 103 total calcium 9.2. U rinalysis is unremarkable. CT head without contrast result revealed no acute intracranial abnormality. X-ray of the abdomen result revealed percutaneous gastrostomy tube appropriately position with in the gastric body without evidence of contrast extravasation. Abundant colonic fecal matter possibly reflecting constipation. CT abdomen and pelvis without contrast result revealed colonic diverticulosis. A symmetric circumferential wall thickening of the sigmoid colon with mild pericolonic fat stranding likely diverticulitis. There is a communication between the sigmoid colon and the medially placed cecum with loss of fat plane, suggestive of colocolic fistula. No interval changes. Incisional hernia in the anterior abdominal wall with omental fat herniation no interval changes. A few enlarged periumbilical and anterior abdominal wall lymph nodes no interval changes. While in the ER patient received Zosyn IV. As per ER POWER BALLAST MACHINE OPERATOR ,peg tube was replaced in the ER and while ER staff was performing in and out cath fecal material was obtained on [address] abdomen and pelvis was obtained and revealed colocolic fistula and ER POWER BALLAST MACHINE OPERATOR consulted Gen surgeon it applications manager .Will admit patient for further medical management 04/05 Patient was examined on the bedside. The patient's 2 daughters were with the patient. The history was taken from 1 of the daughters. According to the daughter the [facility] after which she was brought to the hospital. The patient has dementia but was able to answer the questions regarding how she was feeling and pain. The patient complained of pain on her left side of the head on which she fell. As per the daughter, she is planning to move the patient to her home once she has finalized all the arrangements. 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 04/06 Patient was examined on the bedside. The patient's 2 daughters were with the patient. General surgery was consulted yesterday and they recommended no surgical intervention at the time and and to start the PEG tube feed. The patient complained of pain in the lower abdomen therefore a bladder scan was ordered as per the patient's daughter the patient wants to go to the washroom for urination and defecation but she has been told to not ambulate at the time therefore, as per the daughter the patient is holding in her urine and stool. Lactulose was ordered to help with patient's defecation. Patient SNF facility [facility] was consulted to inquire about the patient's PEG tube feed given to her at [facility] so that can be restarted here. Physical therapy is ordered to help patient ambulate 04/07 Patient was examined on the bedside. The patient's 2 daughters were with the patient. The patient was started on her PEG tube feeds yesterday but started vomiting therefore the PEG tube was stopped. She is planned to restart her PEG feed after getting Reglan and Zofran. The patient was complaining of severe pain (03/31) in right lower quadrant pain for which she was started on IV Tylenol. The patient was given 1 dose of lactulose yesterday but was unable to have bowel movement therefore the patient was prescribed Fleet enema. As the patient was unable to pass urine yesterday a bladder scan was performed that showed urinary retention therefore the patient had a Villasenor's in place. Physical therapy tried to work with the patient yesterday but the patient was dizzy because, as per the daughter, the patient had morphine just before physical therapy came. 04/08/25: Patient was examined in room 402, Patient's family friend was present in the room. Patient was started on PEG tube feeding and the feed was 25 ml t nain and is scheduled for another feed today. She doesn't complain of any pain, nausea and vomiting today. Patient reports she passed stools twice last night. Foleys was in place and the output was 75ml. 04/09 The patient was examined in the room but the patient was sleeping, her daughter was at her bedside. As per the nurse, patient's initial abdominal x-ray report showed colonic distended with air-filled with fecal impaction seen in the rectal vault. But later at, Radiology updated the report and reported large bowel obstruction with transition point at the descending-sigmoid junction. Cecal dilation to 9 cm, at risk for perforation. They recommended CT abdomen for further evaluation. They also reported dilated descending colon measuring 6.8 cm in diameter, medially positioned cecum, no evidence of free air or pathological calcification, and no acute osseous abnormality. Due to the updated findings Dr. Galarza was contacted at night but did not order anything. Dr. Galarza was contacted again in the morning and ordered a repeat abdominal x-ray. As per the daughter, the patient have had 4 bowel movements since yesterday and is not complaining of pain. 04/10 The patient was examined in the room. As per the daughter, the patient has slept outlined therefore the patient was sleeping. The patient was started on 200 mL hydration through PEG tube and dietary was consulted for her fluid i ntake. Due to acute urinary retention the patient had a Villasenor's catheter. After the bladder training the Villasenor's catheter will be removed. Case management consulted for discharge to [facility]. Repeat abdominal KUB showed no acute obstruction REVIEW OF SYSTEMS CONSTITUTIONAL: Denies fevers, chills, or night sweats. No unintentional weight loss reported. NEUROLOGICAL: Dementia ENT: No hearing loss, otalgia, otorrhea, rhinitis, rhinorrhea, hoarseness, or sore throat. CARDIOVASCULAR: Denies any exertional angina, dyspnea on exertion, orthopnea, paroxysmal nocturnal dyspnea, palpitations, life-threatening arrhythmias, claudication. PULMONARY: Denies any shortness of breath, cough, phlegm/sputum, hemoptysis, pleuritic chest pain. SLEEP: Denies morning headaches, daytime somnolence or napping. Denies difficulty falling asleep, staying asleep, waking from sleep. Denies knowledge of snoring. GASTROINTESTINAL: Denies any type of dysphagia to either liquids or solids. Denies nausea, vomiting, pyrosis, early satiety, abdominal pain, diarrhea, constipation, or changes in stool consistency or caliber. Denies coffee-ground emesis, hematemesis, hematochezia, or melanotic stools. GENITOURINARY: Denies frequency, urgency, nocturia, hematuria or incontinence (Storage/Irritative symptoms.) Low urinary stream, straining to void, urinary intermittency or hesitancy, splitting of the voiding stream, terminal dribbling. ENDOCRINOLOGIC: Denies polyuria, polydipsia, polyphagia or heat/cold intolerances. PHYSICAL EXAM GENERAL APPEARANCE: The patient is awake, alert, and orientedx2, in no acute cardiopulmonary distress. NEUROLOGICAL: Motor is 4/4 in bilateral upper and lower extremities proximal to distal. No sensory deficits. HEENT: Face is symmetric. Pupils are equal and reactive. Extraocular movements are intact. NECK: Supple. No JVD. No thyromegaly. No submental, submandibular, pre- /postauricular, occipital or supraclavicular lymphadenopathy. CHEST: Normal chest expansion. No Telemetry. LUNGS: Absence of any rales, rhonchi or any wheezing. CARDIOVASCULAR: Regular. S1 and S2 normal. No appreciable rubs, murmurs or gallops. ABDOMEN: Abdominal tenderness on bilateral lower quadrant per palpation Soft and nondistended. There is no rebound, voluntary guarding, or rigidity. : Villasenor in place. EXTREMITIES: Non-edematous and not cyanotic. No clubbing. Good capillary refill. SKIN: left head bump Vital Signs (last 8hr) Date Time Temp Pulse Resp B/P (MAP) Pulse Ox O2 Delivery O2 Flow Rate FiO2 04/10/25 12:00 98.1 77 16 103/53 96 Room Air 04/10/25 08:00 97.9 73 17 106/65 100 Room Air LABS: Laboratory: Test 04/10/25 04:30 04/09/25 03:16 Range/Units White Blood Count 6.3 4.8-10.8 K/uL Red Blood Count 2.92 L 4.00-5.50 MIL/uL Hemoglobin 7.9 L 12.0-16.0 g/dL Hematocrit 25.2 L 36-48 % Mean Corpuscular Volume 86.3 79-99 fL Mean Corpuscular Hemoglobin 27.1 27.0-33.0 pg Mean Corpuscular Hemoglobin Concent 31.3 L 32.0-36.0 g/dL Red Cell Distribution Width 14.8 11.0-15.5 % Platelet Count 359 130-400 K/uL Mean Platelet Volume 10.1 7.5-10.5 fL Nucleated Red Blood Cells 0.0 0.0-0.19 % Sodium Level 140 136-145 mmol/L Potassium Level 3.6 3.5-5.1 mmol/L Chloride Level 104 101-111 mmol/L Carbon Dioxide Level 31 21-32 mmol/L Blood Urea Nitrogen 16 7-18 mg/dL Creatinine 0.5 0.5-1.0 mg/dL Glomerular Filtration Rate Calc 93 >90 mL/min Random Glucose 89 70-105 mg/dL Total Calcium 8.0 L 8.5-10.1 mg/dL Free Thyroxine (T4) Direct 1.26 0.76-1.46 ng/dL Immature Granulocyte % (Auto) 0.3 0-1 % Neutrophils (%) (Auto) 58.2 40.0-77.0 % Lymphocytes (%) (Auto) 24.2 21.0-51.0 % Monocytes (%) (Auto) 14.7 H 3.0-13.0 % Eosinophils (%) (Auto) 2.1 0.0-8.0 % Basophils (%) (Auto) 0.5 0.0-5.0 % Neutrophils # (Auto) 3.7 1.8-7.7 K/uL Lymphocytes # (Auto) 1.5 1.0-4.8 K/uL Monocytes # (Auto) 0.9 0.1-1.0 K/uL Eosinophils # (Auto) 0.13 0.00-0.70 K/uL Basophils # (Auto) 0.03 0.00-0.20 K/uL Absolute Immature Granulocyte (auto 0.02 0-1 K/uL Ammonia 29 11-32 umol/L Vitamin B12 Level 600 193-986 pg/mL Thyroid Stimulating Hormone (TSH) 9.51 #H 0.36-3.74 uIU/mL Current Medications Medications (Trade) Dose Ordered Sig/Sharona Route PRN Reason Start Time Stop Time Status Last Admin Dose Admin Acetaminophen (TYLenol 325MG TAB) 650 mg Q4H PRN PO TEMPERATURE GREATER THAN 101.5 04/05/25 11:00 05/05/25 10:59 Acetaminophen (TYLenol 325MG TAB) 650 mg Q6H PRN PO MILD PAIN (1-3) 04/05/25 11:00 05/05/25 10:59 04/06/25 16:25 650 MG Acetaminophen (acetaMINOPHEN 1,000MG/100ML) 1,000 mg Q6H6 IVPB 04/07/25 12:00 04/09/25 17:00 DC 04/09/25 14:12 1,000 MG Clonazepam (clonazePAM 0.5 mg) 0.5 mg BID PO 04/08/25 21:00 05/08/25 20:59 04/10/25 10:40 0.5 MG Lactated Ringer's 1,000 ml @ 75 mls/hr [id number] IV 04/04/25 22:00 05/04/25 21:59 04/08/25 03:32 75 MLS/HR Lisinopril (Prinivil 20mg) 20 mg DAILY PO 04/09/25 09:00 05/09/25 08:59 04/10/25 10:40 20 MG Magnesium Sulfate 50 ml @ 0 mls/hr PROTOCOL PRN IV OTHER [SEE ORDER COMMENTS] 04/04/25 22:00 05/04/25 21:59 Memantine (NAmenDA 5 MG TAB) 10 mg DAILY PO 04/09/25 09:00 05/09/25 08:59 04/10/25 10:40 10 MG Metoclopramide HCl (regLAN 10MG IV) 5 mg TIDAC IVP 04/07/25 13:45 05/07/25 13:44 04/10/25 12:48 5 MG Metoclopramide HCl (regLAN 5 MG TAB) 5 mg TIDAC PO 04/07/25 11:30 04/07/25 13:20 DC Morphine Sulfate (morPHINE 4MG SYG) 1 mg Q6H PRN IVP SEVERE PAIN (7-10) 04/05/25 11:00 04/10/25 13:59 DC 04/09/25 20:52 1 MG Ondansetron HCl (zoFRAN 4MG INJ) 4 mg Q6H PRN IV NAUSEA/VOMITING 04/04/25 22:00 05/04/25 21:59 04/07/25 13:21 4 MG Pantoprazole Sodium (PROTonix 40MG INJ) 40 mg DAILY IVP 04/05/25 09:00 05/05/25 08:59 04/10/25 10:39 40 MG Piperacillin Sod/ Tazobactam Sod (Zosyn 3.375gm+NS 50ml) 3.375 gm Q8H IVPB 04/05/25 05:00 04/15/25 04:59 04/10/25 12:48 3.375 GM Potassium Chloride 100 ml @ 50 mls/hr AD PRN IV POTASSIUM PROTOCOL 04/04/25 22:00 05/04/25 21:59 04/08/25 18:48 50 MLS/HR Sodium Chloride (NS 50ml) 50 ml AD IV 04/05/25 09:00 04/04/25 23:11 DC DIAGNOSTICS / RADIOLOGY: PATIENT: MODESTA CHAND MR#: [id number] : 1940 SEX: F AGE: 85 LOCATION: 4AH ORDER 3 STATUS: ADM IN REPORT#: [id number] SERVICE 2 REASON: prio report indicating a blockage ORDERING PHYSICIAN: BEVERLY GALARZA MD PROCEDURE: ABD 1VW - ABD 1VW EXAM: CR Abdomen, 1 View. CLINICAL HISTORY: prio report indicating a blockage COMPARISON: 04/06/2025. FINDINGS: BOWEL: The bowel gas pattern is within normal limits. There is enteric contrast noted to the level of the distal colon. PERITONEUM/SOFT TISSUES: No free air evident. No pathologic appearing calcification. BONES: No acute osseous abnormality. IMPRESSION: No bowel obstruction. Enteric contrast to the level of the distal colon. /[place] DICTATED BY: KOFFI GEE MD DATE: 04/09/25 1252 ELECTRONICALLY SIGNED BY: KOFFI GEE MD DATE: 04/09/25 1252 ASSESSMENT: Colocolic fistula POA Closed head injury POA S/P Fall injury at the senior care POA Chronic anemia POA Acute thrombocytosis POA Failure to thrive POA S/P peg tube replacement in ER POA Debility POA Dementia POA Hypertension POA Constipation POA Acute on chronic diverticulitis POA PLAN: Closed head injury ,S/P Fall injury at the senior care CT scan head was negative for any acute intracranial abnormality Blood pressure today is 125/62 Patient is on LR @ 75ml/hr For pain she is on morphine sulfate and acetaminophen p.r.n. Because of right lower quadrant pain, the patient was started on IV Tylenol. Colocolic fistula CT scan of the abdomen showed communication between the sigmoid colon and the immediately placed cecum with loss of fat plane which is suggestive of colocolic fistula. General Surgery is consulted. They recommended no surgical intervention at the time and and to start the PEG tube feed. General surgery signed off on the case. Consulted SNF [facility] to inquire about patients PEG tube feed Restart on PEG tube feed after Reglan and Zofran, as patient vomited after restarting PEG tube feed . PEG tube was started and 25ml of feed was given. Ordered lactulose for constipation which did not help in bowel movement. Ordered Fleet enema(04/07/25), Patient passed stool twice on 04/07/25 night. And had multiple bowel movements since then. Bladder scan for lower abdominal pain showed urinary retention. Villasenor is in place with output of 75ml today (04/08/25). PT ordered for ambulation Patient is on Protonix 40 mg OD Started on Zosyn - day 5 Abdominal x-ray ordered. Results show Colonic distended with air-filled with fecal impaction seen in rectal vault. (04/06/2025) Updated abdominal x-ray report (04/09/2025) showed large bowel obstruction with transition point at the descending-sigmoid junction. Cecal dilation to 9 cm, at risk for perforation. They recommended CT abdomen for further evaluation. They also reported dilated descending colon measuring 6.8 cm in diameter, medially positioned cecum, no evidence of free air or pathological calcification, and no acute osseous abnormality. As per general surgery " images from the 16th to proceed with the concerning findings with potential perforation developing. Since imaging patient has had m ultiple bowel movements no abdominal distention and soft abdomen .Patient reporting no discomfort and has been on diet tolerating well" General surgery ordered for repeat abdominal KUB x-ray that showed no acute obstruction. She is recommended to continue diet. He was started on 200 mL of fluids through PEG tube and dietitian consulted. They ordered to give 200 mL of water Q4 (1200ml in 24hrs). The patient is planned for Villasenor's removal after bladder training. Chronic anemia Hemoglobin today is 7.9 Will Monitor H&H Hyperthyroidism TSH 9.51 FT$ 1.26 PHYSICIAN RESIDENT STATEMENT I was present with the resident during the History and Physical exam and I have reviewed the resident's note. This case was discussed with the resident and I agree with the history, physical exam and medical decision making as documented. Additions/exceptions/observations were directly added to the notes. Stevie Viveors IV, MD, SYED M MD Apr 10, 2025 15:07
[2025-04-10 15:48] VITALS: BP 128/59; PULSE 70; RESP 16; TEMP 98.1
--- NOTE | 2025-04-10 15:59 | PN ---
This is a 85-year-old female consulted to surgery with concerns of colocolonic fistula Interval history: This 85-year-old female seen in her room resting KUB unremarkable yesterday Patient continues with diet No abdominal pain reported Physical exam General: Awake alert and oriented Heart: Regular rate and rhythm} Lungs: Clear to auscultation no distress Abdomen: [Soft, nontender, nondistended Assessment : This is an 85-year-old female with concerns of colo colonic fistula and constipation which has resolved Plan: From surgical standpoint no further intervention planned Patient to follow up in outpatient setting for continued monitoring a colocolonic fistula Avoid constipation Patient is cleared from surgical standpoint for discharge Surgical case has been discussed with my supervising physician in the above plan was formulated and agreed upon We appreciate the hospitalist team for us to participate in patient's care. Greater than 45 minutes of time spent patient, reviewing chart, working on documentation Vitals/Labs Vital Signs Date Time Temp Pulse Resp B/P (MAP) Pulse Ox O2 Delivery O2 Flow Rate FiO2 04/10/25 15:48 98.1 70 16 128/59 96 Room Air 04/09/25 20:50 0 21 Laboratory Tests 04/10/25 04:30 Medications Current Medications Diatrizoate Meglum/ Diatrizoate Sod 30 ml STK-MED ONCE .ROUTE; Start 04/04/25 at 18:19; Stop 04/04/25 at 18:19; Status DC Piperacillin Sod/ Tazobactam Sod 3.375 gm ONCE ONCE IV Last administered on 04/04/25at 22:29; Start 04/04/25 at 21:00; Stop 04/04/25 at 21:01; Status DC Sodium Chloride 1,428 ml @ 100 mls/hr ONCE ONCE IV Last administered on 04/04/25at 22:29; Start 04/04/25 at 21:00; Stop 04/05/25 at 11:16; Status DC Ondansetron HCl 4 mg Q6H PRN IV Last administered on 04/07/25at 13:21; Start 04/04/25 at 22:00; Stop 05/04/25 at 21:59 Lactated Ringer's 1,000 ml @ 75 mls/hr [id number] IV Last administered on 04/08/25at 03:32; Start 04/04/25 at 22:00; Stop 05/04/25 at 21:59 Magnesium Sulfate 50 ml @ 0 mls/hr PROTOCOL PRN IV; Start 04/04/25 at 22:00; Stop 05/04/25 at 21:59 Potassium Chloride 100 ml @ 50 mls/hr AD PRN IV Last administered on 04/08/25at 18:48; Start 04/04/25 at 22:00; Stop 05/04/25 at 21:59 Piperacillin Sod/ Tazobactam Sod 3.375 gm Q8H IVPB Last administered on 04/10/25at 12:48; Start 04/05/25 at 05:00; Stop 04/15/25 at 04:59 Sodium Chloride 50 ml AD IV; Start 04/05/25 at 09:00; Stop 04/04/25 at 23:11; Status DC Pantoprazole Sodium 40 mg DAILY IVP Last administered on 04/10/25at 10:39; Start 04/05/25 at 09:00; Stop 05/05/25 at 08:59 Acetaminophen 650 mg Q6H PRN PO Last administered on 04/06/25at 16:25; Start 04/05/25 at 11:00; Stop 05/05/25 at 10:59 Acetaminophen 650 mg Q4H PRN PO; Start 04/05/25 at 11:00; Stop 05/05/25 at 10:59 Morphine Sulfate 1 mg Q6H PRN IVP Last administered on 04/09/25at 20:52; Start 04/05/25 at 11:00; Stop 04/10/25 at 13:59; Status DC Lactulose 20 gm ONCE ONCE PO Last administered on 04/06/25at 11:06; Start 04/06/25 at 11:00; Stop 04/06/25 at 11:01; Status DC Acetaminophen 1,000 mg Q6H6 IVPB Last administered on 04/09/25at 14:12; Start 04/07/25 at 12:00; Stop 04/09/25 at 17:00; Status DC Metoclopramide HCl 5 mg TIDAC PO; Start 04/07/25 at 11:30; Stop 04/07/25 at 13:20; Status DC Metoclopramide HCl 5 mg TIDAC IVP Last administered on 04/10/25at 12:48; Start 04/07/25 at 13:45; Stop 05/07/25 at 13:44 Lisinopril 20 mg DAILY PO Last administered on 04/10/25at 10:40; Start 04/09/25 at 09:00; Stop 05/09/25 at 08:59 Clonazepam 0.5 mg BID PO Last administered on 04/10/25at 10:40; Start 04/08/25 at 21:00; Stop 05/08/25 at 20:59 Memantine 10 mg DAILY PO Last administered on 04/10/25at 10:40; Start 04/09/25 at 09:00; Stop 05/09/25 at 08:59 MARC EISENBERG Jr. PAC Apr 10, 2025 15:59
--- NOTE | 2025-04-10 16:49 | NUR ---
CM NOTE spoke to daughter ancelmo and states is in agreement for [facility], choice letter signed..referralsent and pending approval for [facility].
[2025-04-10 17:13] LABS: APPEARANCE,URINE CLEAR (CLEAR); GLUCOSE, URINE (UA) NEGATIVE (NEGATIVE); LEUKOCYTE ESTERASE ,URINE NEGATIVE Leu/uL (NEGATIVE); NITRATE,URINE NEGATIVE (NEGATIVE); OCCULT BLOOD,URINE NEGATIVE (NEGATIVE)
[2025-04-10 17:15] LABS: ADD UA MICROSCOPIC YES; CALCIUM OXALATE CRYSTALS,UR RARE /LPF (None Seen); OTHER CASTS, URINE 1 /LPF (None Seen)
[2025-04-10 20:00] VITALS: BP 120/64; PULSE 78; RESP 19; TEMP 97.9; O2SAT 95
[2025-04-11] VITALS (7 sets, daily range): BP systolic 101–143; BP diastolic 50–81; PULSE 64–79; RESP 16–20; TEMP 97.3–98.1; O2SAT 99
[2025-04-11 04:12] LABS: NUCLEATED RED BLOOD CELLS 0.0 % (0.0-0.19); PLATELET COUNT (AUTO) 366.0 K/uL (130-400); RED BLOOD CELL COUNT(AUTO) 3.15 MIL/uL (4.00-5.50); RED CELL DISTRIBUTION WIDTH 15.2 % (11.0-15.5); WHITE BLOOD COUNT (AUTO) 5.7 K/uL (4.8-10.8)
[2025-04-11 04:49] LABS: ASPARTATE AMINOTRANSFERASE 16.0 U/L (10-37); CREATININE 0.5 mg/dL (0.5-1.0); GLOMERULAR FILTR. RATE CALC 93.0 mL/min (>90); GLUCOSE,RANDOM 97.0 mg/dL (70-105); SODIUM SERUM 142.0 mmol/L (136-145); TOTAL PROTEIN, SERUM 6.1 g/dL (6.0-8.3); UREA NITROGEN, BLOOD 13.0 mg/dL (7-18)
[2025-04-11] MEDS ORDERED: PoTASSium chloRIDE 20MEQ ER 20 MEQ ERTAB PO PRN (05:00)
[2025-04-11] MEDS: PoTASSium chl 10% ELIXIR 20MEQ 20 MEQ/15 ML UDCUP PEG PRN (05:11)
--- NOTE | 2025-04-11 06:57 | NUR ---
HALE CATHETER HALE DISCONTINUED AT THIS TIME PER MD INSTRUCTIONS. PATIENT TOLERATED WELL.
--- NOTE | 2025-04-11 11:45 | NUR ---
Nutritional f/u Note: Chart, meds, and labs Reviewed. The patient was started on 200 mL hydration through PEG tube nursing spoke with RD for fluid intake. Pt pending transfer to SNF. Currentlyn tolerating TF jevity 1.5 @50ml/hr with 200ml H20 flush q 4 hrs. Recommend: - if prolong (>3-5days), if unable to tolerate EN, evaluated for PN due to malabsorption risk. Provide Jevity 1.5 @ 40 ml/hr x 22 hrs + FWF 200 Q4H Provides: 1320 kcals, 56 gm pro, 1868 ml per day -If bolus provide: 4 cans of Jevity 1.5 (times: 0900,1400, 1900, 0000) 30 ml before and after each feed, 948 ml by EOD - Electrolyte replacements per protocol -adult MVI -Monitor feeding tolerance, %, wt, and labs -If No BM >3days consider bowel stimulant. - Notify RD if additional nutrition concerns arise. Addendum: 04/11/25 at [address] Amended: Links added.
--- NOTE | 2025-04-11 13:50 | NUR ---
FEEDINGS JEVITY 1.5 RATE CHANGED TO 45ML/HR ; NO RESIDUAL OBTAINED. PROVIDED PATIENT WITH 200MLS OF H2O ORDERED. PATIENT TOLERATING FEEDINGS WELL. WILL CONTINUE TO MONITOR.
--- NOTE | 2025-04-11 18:14 | DS ---
Discharge Summary Hospital Course Summary: The patient is a 85-year-old female, a resident of [facility] with past medical history of Dementia, Hypertension, constipation, anxiety, insomnia ,diverticulosis , anemia and PEG tube placement on 03/12/2025 who was brought to the ED via EMS coming from an [facility] nursing facility due to head injury and patient peg tube was also pulled out requiring peg replacement. In the ER , the daughter was at bedside during evaluation and stated that patient was admitted here last Mar 03 due to nausea,vomiting and diarrhea and patient was not eating anymore and that peg tube was decided to be place. She said that patient was transferred to [facility] for rehab. As per the daughter, the patient has dementia but becomes more confused, got out of bed, walked and eventually fell on the floor hitting her left side of the head. After which she was brought to the ER. Patient is also on continuous peg tube feeding at the custodial and has chronic diarrhea. In the ER patient continued to complain of lower abdominal pain. Latest vital signs temperature 98.4, heart rate 85, blood pressure 122/60 saturation 96% on room air. Labs: Hemoglobin 8.7, hematocrit 28, platelet count 499 sodium 138, chloride 99, BUN 25, GFR 89 glucose 103 total calcium 9.2. Urinalysis is unremarkable. CT head without contrast result revealed no acute intracranial abnormality. X-ray of the abdomen result revealed percutaneous gastrostomy tube appropriately position with in the gastric body without evidence of contrast extravasation. Abundant colonic fecal matter possibly reflecting constipation. CT abdomen and pelvis without contrast result revealed colonic diverticulosis. A symmetric circumferential wall thickening of the sigmoid colon with mild pericolonic fat stranding likely diverticulitis. There is a communication between the sigmoid colon and the medially placed cecum with loss of fat plane, suggestive of colocolic fistula. No interval changes. Incisional hernia in the anterior abdominal wall with omental fat herniation no interval changes. A few enlarged periumbilical and anterior abdominal wall lymph nodes no interval changes. While in the ER patient received Zosyn IV. As per ER RIVER RAFTING GUIDE ,peg tube was replaced in the ER and while ER staff was performing in and out cath fecal material was obtained on [address] abdomen and pelvis was obtained and revealed colocolic fistula and ER RIVER RAFTING GUIDE consulted Gen surgeon machine ironer . During the hospital course, general surgery saw the patient and recommended no surgical intervention at the time in 2 restart the PEG tube feed. After starting the PEG tube feed, the patient started vomiting therefore the feed was stopped. It was restarted after giving Reglan and Zofran and the patient was able tolerate the feed. During the hospital admission, the patient complained of severe pain in the right lower quadrant for which she was also started on IV Tylenol and given 1 dose of lactulose for her bowel movement. The patient was unable to pass stool after the lactulose dose therefore a Fleet enema was prescribed after which the patient was able to defecate. Due to the lower abdominal pain a bladder scan was performed that showed acute urinary retention therefore Villasenor's was placed. An abdominal KUB was ordered that initially showed colonic distended with air-filled with fecal impaction seen in the rectal vault. But later, Radiology updated the report and reported large bowel obstruction with transition point at the descending-sigmoid junction. Cecal dilation to 9 cm, at risk for perforation. They also reported dilated descending colon measuring 6.8 cm in diameter, medially positioned cecum, no evidence of free air or pathological calcification, and no acute osseous abnormality. Due to the updated findings Dr. Sanderson was contacted ordered a repeat abdominal x-ray. Repeat abdominal KUB showed no acute obstruction. After dietary consultation the patient was started on 200 mL hydration through PEG tube every 4 hourly along with her feed. Today the patient was discharged after general surgery give clearance for discharge. Her Villasenor's was removed after bladder training and the patient was able to void. Physical therapy saw the patient. The patient was discharged to [facility] facility. The patient was stable on discharge Polysomnography Technician(s): General surgery Plan: At this point in time no immediate surgical intervention needed Patient reporting no abdominal pain Patient will be cleared to start with continuous tube feeds through PEG to avoid any issues with emesis Surgical team to be updated with any further acute events Repeat CBC CMP to monitor electrolytes Doctor Abraham has reviewed images and agrees with plan at this time Procedure(s): PATIENT: MODESTA CHAND MR#: [id number] : 1940 SEX: F AGE: 85 LOCATION: [facility] ORDER 52 STATUS: REG REPORT#: [id number] SERVICE 1652 REASON: head injury ORDERING PHYSICIAN: HERMINIO DASILVA PAC PROCEDURE: HEAD WO - CT HEAD/BRAIN W/O CONTRAST EXAM: CT Head Without IV contrast. CLINICAL HISTORY: head injury TECHNIQUE: Axial computed tomography images of the head/brain without intravenous contrast. COMPARISON: None provided. FINDINGS: BRAIN: Age-appropriate atrophy. 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 No evidence of acute hemorrhage. No mass lesion. No CT evidence for acute territorial infarct. No midline shift or extra-axial collections. VENTRICLES: No hydrocephalus. ORBITS: The orbits are unremarkable. SINUSES AND MASTOIDS: The paranasal sinuses and mastoid air cells are clear. BONES: No fracture. SOFT TISSUES: Unremarkable. IMPRESSION: No acute intracranial abnormality. /[place] DICTATED BY: SUNIL SPEAR MD DATE: 04/04/251850 ELECTRONICALLY SIGNED BY: SUNIL SPEAR MD DATE: 04/04/251850 Signed PATIENT: MODESTA CHAND MR#: [id number] : 1940 SEX: F AGE: 85 LOCATION: ED ORDER 28 STATUS: [facility] REPORT#: [id number] SERVICE 24 REASON: PEG tube placement confirmation ORDERING PHYSICIAN: HERMINIO DASILVA PAC PROCEDURE: ABD 1VW - ABD 1VW EXAM: CR Abdomen, 1 View. CLINICAL HISTORY: PEG tube placement confirmation COMPARISON: Radiograph dated March 16, 2025 Findings: AP view of the abdomen is submitted. Percutaneous gastrostomy tube terminates within the gastric body. Enteric contrast opacifies the gastric fundus. No extravasation noted to suggest a leak. There is abundant colonic fecal matter that may reflect constipation. There is a nonobstructive bowel gas pattern. Incidental atherosclerotic vascular calcifications are noted. IMPRESSION: 1. Percutaneous gastrostomy tube appropriately positioned within the gastric body without evidence of contrast extravasation. 2. Abundant colonic fecal matter, possibly reflecting constipation. /[place] DICTATED BY: LISA BECKHAM Jr., MD DATE: 04/04/252001 ELECTRONICALLY SIGNED BY: LISA BECKHAM Jr., MD DATE: 04/04/252001 PATIENT: MODESTA CHAND MR#: [id number] : 1940 SEX: F AGE: 85 LOCATION: [facility] ORDER 26 STATUS: [facility] REPORT#: [id number] SERVICE 25 REASON: ABdominal discomfort, R/O fistula ORDERING PHYSICIAN: HERMINIO DASILVA PAC PROCEDURE: ABD PEL WO - CT ABDOMEN/PELVIS W/O CONTRAST EXAM: CT Abdomen and Pelvis Without IV contrast CLINICAL HISTORY: Abdominal discomfort, to rule out a fistula. TECHNIQUE: Axial computed tomography images of the abdomen and pelvis without intravenous contrast. CONTRAST: No IV contrast. COMPARISON: CT dated March 03, 2025. FINDINGS: LUNG BASES: Bibasilar atelectasis with parenchymal scarring. Coronary artery calcifications. Aortic valve calcifications. Otherwise, the lung bases appear clear. No pleural effusions are seen. LIVER: Unremarkable. GALLBLADDER AND BILE DUCTS: The gallbladder is surgically removed. PANCREAS: Unremarkable. SPLEEN: Unremarkable. ADRENAL GLANDS: Unremarkable. KIDNEYS, URETERS, AND BLADDER: Tiny concretion in the mid calyx of the right kidney and in the mid and lower calyx of the left kidney. A few cysts in the left kidney, the largest measuring approximately 12 x 10 mm in the upper pole of the left kidney. There is no hydronephrosis or hydroureter. STOMACH AND BOWEL: There is a gastrostomy tube in place. The stomach is distended. No wall thickening. Colonic diverticulosis. The cecum is medially placed. There is an asymmetric circumferential wall thickening of the sigmoid colon with mild pericolonic fat stranding. 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 The terminal ileum is adherent to the sigmoid colon. PERITONEUM: Approximately 5.7 x 4.6 cm defect in the anterior abdominal wall involving the supra and infraumbilical region, with herniation of the omental fat, suggestive of incisional hernia is likely. No free fluid. No free air. LYMPH NODES: A few enlarged, rounded lymph nodes in the periumbilical region and in the soft tissue plane of the anterior abdominal wall adjacent to the incisional hernia, the largest measuring approximately 1.1 x 1 cm. REPRODUCTIVE: Unremarkable as visualized. VASCULATURE: Atherosclerotic changes in the visualized arterial vasculature in the form of fibrocalcified plaque. No evidence of abdominal aortic aneurysm. BONES: Spinal degenerative changes. Anterior offset of L4 vertebra over L5, due to facet joint arthropathy. No aggressive appearing osseous lesion. No acute osseous pathology is evident. IMPRESSION: 1. Colonic diverticulosis. Asymmetric circumferential wall thickening of the sigmoid colon with mild pericolonic fat stranding, likely diverticulitis. There is a communication between the sigmoid colon and the medially placed cecum with loss of fat plane, suggestive of colocolic fistula. No interval changes. 2. Incisional hernia in the anterior abdominal wall with omental fat herniation, no interval changes. 3. A few enlarged periumbilical and anterior abdominal wall lymph nodes, no interval changes. /[place] DICTATED BY: LISA BECKHAM Jr., MD DATE: 04/04/252127 ELECTRONICALLY SIGNED BY: LISA BECKHAM Jr., MD DATE: 04/04/252127 PATIENT: MODESTA CHAND MR#: [id number] : 1940 SEX: F AGE: 85 LOCATION: H ORDER 04 STATUS: ADM IN REPORT#: [id number] SERVICE 150 REASON: sbo ORDERING PHYSICIAN: MARC EISENBERG Jr. PAC PROCEDURE: ABD 1VW - ABD 1VW ABD 1VW REASON: sbo FINDINGS: Single image of the abdomen was obtained. Nonspecific gas pattern of small bowel. There is colonic distended air-filled with Gastrografin from prior study in the right colon and hepatic flecture.. There is fecal impaction seen in the rectal vault. Bones and soft tissues appear unremarkable. There are no abnormal calcifications. There are surgical clips in the right upper quadrant from prior cholecystectomy. There is atherosclerotic change of the abdominal aorta with calcified plaque. There is no evidence of foreign body. There is osteopenia of the osseous structure. IMPRESSION: 1. Colonic distended with air-filled with fecal impaction seen in the rectal vault.. DICTATED BY: DENIS REEVES MD DATE: 04/08/251144 ELECTRONICALLY SIGNED BY: DENIS REEVES MD DATE: 04/08/251148 Signed PATIENT: MODESTA CHAND MR#: [id number] : 1940 SEX: F AGE: 85 LOCATION: [facility] ORDER 3 STATUS: ADM IN REPORT#: [id number] SERVICE 2 REASON: prio report indicating a blockage ORDERING PHYSICIAN: BEVERLY SANDERSON MD PROCEDURE: ABD 1VW - ABD 1VW EXAM: CR Abdomen, 1 View. CLINICAL HISTORY: prio report indicating a blockage COMPARISON: 04/06/2025. FINDINGS: BOWEL: The bowel gas pattern is within normal limits. There is enteric contrast noted to the level of the distal colon. PERITONEUM/SOFT TISSUES: No free air evident. No pathologic appearing calcification. BONES: No acute osseous abnormality. IMPRESSION: No bowel obstruction. Enteric contrast to the level of the distal colon. /[place] DICTATED BY: KOFFI GEE MD DATE: 04/09/251251 ELECTRONICALLY SIGNED BY: KOFFI GEE MD DATE: 04/09/251251 Assessment/Plan: ASSESSMENT: Colocolic fistula POA Closed head injury POA S/P Fall injury at the custodial POA Chronic anemia POA Acute thrombocytosis POA Failure to thrive POA S/P peg tube replacement in ER POA Debility POA Dementia POA Hypertension POA Constipation POA Acute on chronic diverticulitis POA PLAN: Closed head injury ,S/P Fall injury at the custodial CT scan head was negative for any acute intracranial abnormality Blood pressure today is 125/62 Patient is on LR @ 75ml/hr For pain she is on morphine sulfate and acetaminophen p.r.n. Because of right lower quadrant pain, the patient was started on IV Tylenol. Colocolic fistula CT scan of the abdomen showed communication between the sigmoid colon and the immediately placed cecum with loss of fat plane which is suggestive of colocolic fistula. General Surgery is consulted. They recommended no surgical intervention at the time and and to start the PEG tube feed. General surgery signed off on the case. Consulted [facility] to inquire about patients PEG tube feed Restart on PEG tube feed after Reglan and Zofran, as patient vomited after restarting PEG tube feed . PEG tube was started and 25ml of feed was given. Ordered lactulose for constipation which did not help in bowel movement. Ordered Fleet enema(04/07/25), Patient passed stool twice on 04/07/25 night. And had multiple bowel movements since then. Bladder scan for lower abdominal pain showed urinary retention. Villasenor is in place with output of 75ml today (04/08/25). PT ordered for ambulation Patient is on Protonix 40 mg OD Started on Zosyn - day 5 Abdominal x-ray ordered. Results show Colonic distended with air-filled with fecal impaction seen in rectal vault. (04/06/2025) Updated abdominal x-ray report (04/09/2025) showed large bowel obstruction with transition point at the descending-sigmoid junction. Cecal dilation to 9 cm, at risk for perforation. They recommended CT abdomen for further evaluation. They also reported dilated descending colon measuring 6.8 cm in diameter, medially positioned cecum, no evidence of free air or pathological calcification, and no acute osseous abnormality. As per general surgery " images from the th to proceed with the concerning findings with potential perforation developing. Since imaging patient has had multiple bowel movements no abdominal distention and soft abdomen .Patient reporting no discomfort and has been on diet tolerating well" General surgery ordered for repeat abdominal KUB x-ray that showed no acute obs truction. She is recommended to continue diet. He was started on 200 mL of fluids through PEG tube and dietitian consulted. They ordered to give 200 mL of water Q4 (1200ml in 24hrs). The patient is planned for Villasenor's removal after bladder training. Chronic anemia Hemoglobin today is 7.9 Will Monitor H&H Hyperthyroidism TSH 9.51 FT$ 1.26 Discharge Instructions: The patient is being discharged to [facility] Home Medications: Active Scripts Sucralfate (Sucralfate) 1 Gram Tablet, 1 TAB PO TID for 30 Days, #90 TAB 0 Refills Prov:GWEN MORENO MD 12/11/24 Reported Medications Ondansetron HCl (Zofran) 4 Mg/2 Ml Inj, 4 MG PEG QIDP PRN for NAUSEA, ML 04/04/25 Acetaminophen (Acetaminophen Extra Strength) 500 Mg Tablet, 1000 MG PO HSPRN PRN for PAIN, TAB 04/04/25 Doxepin HCl (Doxepin HCl) 50 Mg Capsule, 1 CAP PO HS for 30 Days, #30 CAP 0 Refills 04/04/25 Pantoprazole Sodium (Pantoprazole Sodium) 40 Mg Tablet.dr, 1 TAB PO DAILY for 30 Days, #30 TAB 0 Refills 04/04/25 Clonazepam (Clonazepam) 0.5 Mg Tab.rapdis, 1 TAB PO BID for 30 Days, #60 TAB 0 Refills 04/04/25 Ferrous Sulfate (Ferrous Sulfate) 325 Mg (65 Mg Iron) Ectab, 1 TAB PO BID for 30 Days, #60 TAB 0 Refills 04/04/25 Lisinopril (Lisinopril) 20 Mg Tablet, 1 TAB PO DAILY for 30 Days, #30 TAB 0 Refills 04/04/25 Memantine HCl (Memantine HCl) 10 Mg Tablet, 1 TAB PO DAILY for 30 Days, #30 TAB 0 Refills 04/04/25 Continued Medications: Acetaminophen (Acetaminophen Extra Strength) 500 Mg Tablet 1000 MG PO HSPRN PRN for PAIN, TAB Clonazepam (Clonazepam) 0.5 Mg Tab.rapdis 1 TAB PO BID for 30 Days, #60 TAB 0 Refills Doxepin HCl (Doxepin HCl) 50 Mg Capsule 1 CAP PO HS for 30 Days, #30 CAP 0 Refills Ferrous Sulfate (Ferrous Sulfate) 325 Mg (65 Mg Iron) Ectab 1 TAB PO BID for 30 Days, #60 TAB 0 Refills Lisinopril (Lisinopril) 20 Mg Tablet 1 TAB PO DAILY for 30 Days, #30 TAB 0 Refills Memantine HCl (Memantine HCl) 10 Mg Tablet 1 TAB PO DAILY for 30 Days, #30 TAB 0 Refills Ondansetron HCl (Zofran) 4 Mg/2 Ml Inj 4 MG PEG QIDP PRN for NAUSEA, ML Pantoprazole Sodium (Pantoprazole Sodium) 40 Mg Tablet.dr 1 TAB PO DAILY for 30 Days, #30 TAB 0 Refills Sucralfate (Sucralfate) 1 Gram Tablet 1 TAB PO TID for 30 Days, #90 TAB 0 Refills Time spent arranging discharge: 1-30 minutes ATTESTATION BY PHYSICIAN I have seen and examined the patient. I reviewed the documentation, medical decision making, and treatment plan as noted by the resident physician above. I agree with the findings and plan of care. Stevie Viveros IV, MD, SYED M MD Apr 11, 2025 18:14
--- NOTE | 2025-04-11 18:17 | NUR ---
DISCHARGE DISCHARGE ORDERS OBTAINED FOR PATIENT TO BE TRANSFERRED TO [facility]. PER CM, PATIENT WAS ACCEPTED. DISCHARGE INSTRUCTIONS AND DOCUMENTATION GIVEN TO DAUGHTER AT BEDSIDE. VOICED UNDERSTANDING. IV DISCONTINUED, CATHETER INTACT, NO S/S OF INFECTION NOTED. PATIENT TOLERATED WELL. BANDS REMOVED. JEVITY 1.5ML RATE CHANGED TO MAX RATE OF 50ML/HR ORDERED. NO RESIDUAL OBTAINED. PROVIDED PATIENT WITH 200MLS OF H2O ORDERED. PATIENT TOLERATED FEEDINGS WELL. REPORT CALLED IN TO [facility], SPOKE WITH SERENA GASCA AND PROVIDED REPORT ON PATIENT'S CONDITION AND ORDERS. VOICED UNDERSTANDING. EMS CALLED FOR TRANSPORTATION. PENDING ARRIVAL.
--- NOTE | 2025-04-11 19:59 | NUR ---
DISCHARGE PATIENT LEFT VIA STRETCHER WITH EMS, ACCOMPANIED BY SON-IN-LAW. NO S/S OF DISTRESS NOTED.
== END 2025-04-11 19:55 | DRG 394 ==
LOC: EDH 16:43 → EDHIP 22:00 → 4DH 04-05 16:30 → 4AH 04-08 06:45 → 4BH 04-11 08:18
PROVIDERS: ADMIT Hospitalist; ATTEND Hospitalist
PROC: 0D20XUZ Change Feeding Device in Upper Intestinal Tract, External Approach (ICD-10-PCS; principal; 2025-04-04)
DX: K63.2 Fistula of intestine (principal); K57.32 Diverticulitis of large intestine without perforation or abscess without bleeding; Z43.1 Encounter for attention to gastrostomy; K59.39 Other megacolon; Z68.1 Body mass index [BMI] 19.9 or less, adult; R62.7 Adult failure to thrive; K43.2 Incisional hernia without obstruction or gangrene; I10 Essential (primary) hypertension; D75.839 Thrombocytosis, unspecified; S09.90XA Unspecified injury of head, initial encounter; D63.8 Anemia in other chronic diseases classified elsewhere; F03.90 Unspecified dementia, unspecified severity, without behavioral disturbance, psychotic disturbance, mood disturbance, and anxiety; K56.41 Fecal impaction; E87.6 Hypokalemia; F41.9 Anxiety disorder, unspecified; G47.00 Insomnia, unspecified; X58.XXXA Exposure to other specified factors, initial encounter; Z90.710 Acquired absence of both cervix and uterus; Z82.49 Family history of ischemic heart disease and other diseases of the circulatory system; Y93.89 Activity, other specified; Y92.89 Other specified places as the place of occurrence of the external cause; Y99.8 Other external cause status; Z79.899 Other long term (current) drug therapy
CPT/HCPCS: 36415; 70450; 74018; 74176; 80048; 80053; 81001; 82140; 82607; 83735; 84439; 84443; 85025; 85027; 85610; 85730; 99285; G0378; J2270; J2405; J2470; J2543; J2765; J3480; J7120; Q9963